=== PATIENT | female | born 1960 | race Hispanic/Latino ===

== ENCOUNTER 2021-11-11 23:44 | Inpatient (IN) | payer OTHER ==
[~2021-11-11] VITALS: Ht 162.6 cm; Wt 61.6 kg
[2021-11-12] MEDS ORDERED: 0.9%NACL 1000ML 1,000 ML IV ONE (00:30)
[2021-11-12] MEDS ORDERED: DILTIAZEM 25MG INJ IVP ONE ×2 (00:30→02:00)
[2021-11-12 00:31] LABS: APPEARANCE,URINE CLEAR (CLEAR); BILIRUBIN,URINE NEGATIVE (NEGATIVE); COLOR,URINE STRAW (YELLOW); GLUCOSE, URINE (UA) >=1000 mg/dL (NEGATIVE); KETONES,URINE NEGATIVE (NEGATIVE); LEUKOCYTE ESTERASE ,URINE NEGATIVE (NEGATIVE); NITRATE,URINE NEGATIVE (NEGATIVE); OCCULT BLOOD,URINE NEGATIVE (NEGATIVE); PROTEIN,URINE NEGATIVE (NEGATIVE); UROBILINOGEN,URINE 0.2 mg/dL (0.2-1.0)
[2021-11-12 00:35] LABS: BASOPHILS % (AUTO) 0.4 % (0.0-5.0); EOSINOPHILS % (AUTO) 1.1 % (0.0-8.0); HEMATOCRIT 46.3 % (36-48); LYMPHOCYTES % (AUTO) 59.8 % (21.0-51.0); MEAN CORPUSCULAR HEMOGLOBIN 30.7 pg (27.0-33.0); MEAN CORPUSCULAR VOLUME 87.7 fL (79-99); MONOCYTES % (AUTO) 6.6 % (3.0-13.0); NEUTROPHILS % (AUTO) 31.9 % (40.0-77.0); PLATELET COUNT (AUTO) 239 K/uL (130-400); RED BLOOD CELL COUNT(AUTO) 5.28 MIL/uL (4.00-5.50); RED CELL DISTRIBUTION WIDTH 12.8 % (11.0-15.5); WHITE BLOOD COUNT (AUTO) 10.1 K/uL (4.8-10.8)
[2021-11-12 00:37] LABS: BACTERIA,URINE Rare /HPF (None Seen); RBC,URINE None Seen /HPF (0-1); WBC,URINE None Seen /HPF (0-1)
[2021-11-12 00:43] LABS: INR 1.02 (0.85-1.15); PROTHROMBIN TIME 11.1 SEC (9.6-11.6)
[2021-11-12 00:51] LABS: CREATININE 0.8 mg/dL (0.5-1.5); POTASSIUM 3.8 mmol/L (3.5-5.1)
[2021-11-12 01:03] LABS: ALBUMIN 4.7 g/dL (3.5-5.0); BILIRUBIN,TOTAL 0.2 mg/dL (0.2-1.0); MAGNESIUM 1.9 mg/dL (1.80-2.40); PHOSPHORUS 3.4 mg/dL (2.5-4.9); THYROID STIMULATING HORMONE 4.84 uIU/mL (0.36-3.74); TOTAL PROTEIN, SERUM 8.9 g/dL (6.0-8.3)
[2021-11-12] MEDS ORDERED: DILTIAZEM 125 MG/25 ML INJ 125 MG in 0.9%NACL 100ML 100 ML IV SCH ×4 (02:30)
[2021-11-12] MEDS ORDERED: ONDANSETRON 4MG INJ IV PRN (03:30)
[2021-11-12] MEDS ORDERED: ACETAMINOPHEN 325 MG TAB PO PRN (03:30)
[2021-11-12] MEDS ORDERED: HYDROCODONE/ACETAMINOPHEN 5/325 MG TAB PO PRN ×2 (03:30)
[2021-11-12 06:11] LABS: HEMOGLOBIN A1C 10.6 % (4.0-6.0)
[2021-11-12 06:38] VITALS: BP 134/91
[2021-11-12] MEDS ORDERED: METF-445 PO (06:55)
[2021-11-12 07:08] VITALS: BP 120/60
[2021-11-12] MEDS: INSULIN HUMULIN R 100 UNIT/ML 3ML SQ SCH ×3 (08:58→16:30)
[2021-11-12] MEDS ORDERED: ENOXAPARIN SODIUM 40 MG/0.4 ML SYRINGE SQ SCH (09:00)
[2021-11-12] MEDS ORDERED: DILTIAZEM 180MG SR CAP PO SCH (09:00)
[2021-11-12] MEDS ORDERED: FAMOTIDINE 20MG TAB PO SCH (09:00)
[2021-11-12 12:00] VITALS: BP 118/66
[2021-11-12] MEDS ORDERED: DILT180C63 PO (15:09)
[2021-11-12 16:00] VITALS: BP_SYST 107; BP_SYST 116; BP_DIAS 54; BP_DIAS 59
== END 2021-11-12 17:15 | disposition home or self-care (01) | DRG 310 ==
LOC: EDH 23:44 → EDHIP 11-12 03:15 → 2DH 11-12 05:08
PROVIDERS: ADMIT Internal Medicine; ATTEND Internal Medicine
DX: I48.0 Paroxysmal atrial fibrillation (principal); E11.65 Type 2 diabetes mellitus with hyperglycemia; Z79.899 Other long term (current) drug therapy; Z79.84 Long term (current) use of oral hypoglycemic drugs
CPT/HCPCS: 36415; 80053; 81001; 82948; 83036; 83735; 83880; 84100; 84439; 84443; 84484; 85025; 85610; 93005; 99291; G0378; J1650; J1815

== ENCOUNTER 2022-03-03 22:24 | Inpatient (IN) | payer OTHER ==
[~2022-03-03] VITALS: Ht 162.6 cm; Wt 62.5 kg
[~2022-03-03 22:24] MED LIST: DILT180C63 PO; METF-445 PO
[2022-03-03] MEDS: DILTIAZEM 25MG INJ IVP ONE ×2 (22:43→22:50)
[2022-03-03 22:48] LABS: BASOPHILS % (AUTO) 0.5 % (0.0-5.0); EOSINOPHILS % (AUTO) 0.9 % (0.0-8.0); HEMATOCRIT 43.9 % (36-48); LYMPHOCYTES % (AUTO) 51.6 % (21.0-51.0); MEAN CORPUSCULAR HGB CONC 34.6 g/dL (32.0-36.0); MEAN CORPUSCULAR VOLUME 86.8 fL (79-99); MONOCYTES % (AUTO) 5.9 % (3.0-13.0); NEUTROPHILS % (AUTO) 40.9 % (40.0-77.0); PLATELET COUNT (AUTO) 268 K/uL (130-400); RED BLOOD CELL COUNT(AUTO) 5.06 MIL/uL (4.00-5.50); RED CELL DISTRIBUTION WIDTH 13.2 % (11.0-15.5); WHITE BLOOD COUNT (AUTO) 12.3 K/uL (4.8-10.8)
[2022-03-03 22:58] LABS: CREATININE 0.8 mg/dL (0.5-1.5); POTASSIUM 3.6 mmol/L (3.5-5.1)
[2022-03-03] MEDS ORDERED: DILTIAZEM 25MG INJ IVP ONE (23:00)
[2022-03-03] MEDS ORDERED: 0.9%NACL 1000ML 1,000 ML IV ONE (23:00)
[2022-03-03 23:03] LABS: ALBUMIN 4.8 g/dL (3.5-5.0); TOTAL PROTEIN, SERUM 8.6 g/dL (6.0-8.3)
[2022-03-03] MEDS: DILTIAZEM 125 MG/25 ML INJ 125 MG in 0.9%NACL 100ML 100 ML IV SCH (23:17)
[2022-03-03 23:23] LABS: APPEARANCE,URINE CLEAR (CLEAR); BILIRUBIN,URINE NEGATIVE (NEGATIVE); COLOR,URINE YELLOW (YELLOW); GLUCOSE, URINE (UA) 250 mg/dL (NEGATIVE); KETONES,URINE 15 mg/dL (NEGATIVE); LEUKOCYTE ESTERASE ,URINE NEGATIVE (NEGATIVE); NITRATE,URINE NEGATIVE (NEGATIVE); OCCULT BLOOD,URINE NEGATIVE (NEGATIVE); PROTEIN,URINE NEGATIVE (NEGATIVE); UROBILINOGEN,URINE 0.2 mg/dL (0.2-1.0)
[2022-03-03] MEDS ORDERED: ZOSYN 3.375GM +NS 50ML IV SCH (23:30)
[2022-03-03] MEDS ORDERED: ONDANSETRON 4MG INJ IVP PRN (23:30)
[2022-03-03] MEDS ORDERED: 0.9%NACL 1000ML 1,000 ML IV SCH (23:30)
[2022-03-03 23:31] LABS: BACTERIA,URINE None Seen /HPF (None Seen); RBC,URINE None Seen /HPF (0-1); WBC,URINE None Seen /HPF (0-1)
[2022-03-04] MEDS ORDERED: DIPHENHYDRAMINE HCL 25 MG CAPSULE PO PRN
[2022-03-04] MEDS ORDERED: MORPHINE 4 MG SYG IV PRN
[2022-03-04] MEDS ORDERED: NITROGLYCERIN 0.4 MG SL TAB SL PRN
[2022-03-04] MEDS ORDERED: MAG/ALUM/SIMETH 30 ML UDCUP PO PRN
[2022-03-04] MEDS ORDERED: ACETAMINOPHEN WITH CODEINE 1 TAB TAB PO PRN
[2022-03-04] MEDS ORDERED: ONDANSETRON 4MG INJ IV PRN
[2022-03-04] MEDS ORDERED: LACTULOSE 20 GM/30 ML UDCUP PO PRN
[2022-03-04] MEDS ORDERED: ACETAMINOPHEN 325 MG TAB PO PRN ×2
[2022-03-04] MEDS ORDERED: HYDRALAZINE 20MG/ML VIAL IV PRN
[2022-03-04 00:25] LABS: HEMOGLOBIN A1C 8.1 % (4.0-6.0)
[2022-03-04 00:31] LABS: MAGNESIUM 1.5 mg/dL (1.80-2.40); THYROID STIMULATING HORMONE 5.24 uIU/mL (0.36-3.74)
[2022-03-04] MEDS: 0.9%NACL 1000ML 1,000 ML IV SCH ×2 (00:32→11:33)
[2022-03-04] MEDS ORDERED: METO-408 PO (01:50)
[2022-03-04] MEDS ORDERED: ATOR10TA69 PO (01:50)
[2022-03-04 02:05] VITALS: BP 140/77
[2022-03-04 04:00] VITALS: BP 111/67
[2022-03-04] MEDS: INSULIN HUMULIN R 100 UNIT/ML 3ML SQ SCH ×4 (06:50→21:32)
[2022-03-04 07:40] VITALS: BP 135/56
[2022-03-04 08:37] LABS: BASOPHILS % (AUTO) 0.3 % (0.0-5.0); EOSINOPHILS % (AUTO) 1.1 % (0.0-8.0); HEMATOCRIT 38.3 % (36-48); LYMPHOCYTES % (AUTO) 55.5 % (21.0-51.0); MEAN CORPUSCULAR HEMOGLOBIN 30.7 pg (27.0-33.0); MEAN CORPUSCULAR HGB CONC 33.9 g/dL (32.0-36.0); MEAN CORPUSCULAR VOLUME 90.3 fL (79-99); MONOCYTES % (AUTO) 6.7 % (3.0-13.0); NEUTROPHILS % (AUTO) 36.2 % (40.0-77.0); PLATELET COUNT (AUTO) 232 K/uL (130-400); RED BLOOD CELL COUNT(AUTO) 4.24 MIL/uL (4.00-5.50); RED CELL DISTRIBUTION WIDTH 13.4 % (11.0-15.5); WHITE BLOOD COUNT (AUTO) 12.3 K/uL (4.8-10.8)
[2022-03-04] MEDS: FAMOTIDINE 20MG TAB PO SCH ×2 (09:00→21:08)
[2022-03-04] MEDS: ASPIRIN 81 MG EC TAB PO SCH (09:00)
[2022-03-04] MEDS: ENOXAPARIN SODIUM 40 MG/0.4 ML SYRINGE SQ SCH (09:01)
[2022-03-04] MEDS: MAGNESIUM 2GM PREMIX 50ML 50 ML IV SCH (09:02)
[2022-03-04 09:33] LABS: ALANINE AMINOTRANSFERASE 50 U/L (12-78); ALBUMIN 5.1 g/dL (3.5-5.0); ASPARTATE AMINOTRANSFERASE 33 U/L (10-37); CARBON DIOXIDE 16 mmol/L (21-32); CHLORIDE 97 mmol/L (101-111); CREATININE 0.8 mg/dL (0.5-1.5); GLOMERULAR FILTR. RATE CALC 78 mL/min (>60); GLUCOSE,RANDOM 158 mg/dL (70-105); POTASSIUM 3.4 mmol/L (3.5-5.1); SODIUM SERUM 139 mmol/L (136-145); TOTAL PROTEIN, SERUM 9.7 g/dL (6.0-8.3); UREA NITROGEN, BLOOD 24 mg/dL (7-18)
[2022-03-04 09:44] LABS: ERYTHROCYTE SEDIMENTATION RATE 9 MM/HR (0-30)
[2022-03-04 11:02] LABS: CRP QUANTITATIVE < 2.00 mg/L (0.00-9.0)
[2022-03-04 12:00] VITALS: BP 106/59
[2022-03-04] MEDS ORDERED: POTASSIUM CHLORIDE 10% ELIXIR 20 MEQ/15 ML UDCUP PO PRN (14:00)
[2022-03-04] MEDS ORDERED: POTASSIUM CHLORIDE 20MEQ/100ML 100 ML IV PRN (14:00)
[2022-03-04 14:38] LABS: CREATININE 0.6 mg/dL (0.5-1.5); POTASSIUM 3.6 mmol/L (3.5-5.1)
[2022-03-04 14:42] LABS: ALBUMIN 3.4 g/dL (3.5-5.0); TOTAL PROTEIN, SERUM 6.8 g/dL (6.0-8.3)
[2022-03-04 16:57] VITALS: BP 123/67
[2022-03-04 20:00] VITALS: BP 130/60
[2022-03-04] MEDS ORDERED: ATORVASTATIN 10 MG TABLET PO SCH (21:00)
[2022-03-04] MEDS: DILTIAZEM 125 MG/25 ML INJ 125 MG in 0.9%NACL 100ML 100 ML IV SCH (22:31)
[2022-03-05 00:33] VITALS: BP 127/65
[2022-03-05 04:00] VITALS: BP 138/58
[2022-03-05 05:58] LABS: BASOPHILS % (AUTO) 0.3 % (0.0-5.0); EOSINOPHILS % (AUTO) 1.6 % (0.0-8.0); HEMATOCRIT 33.5 % (36-48); LYMPHOCYTES % (AUTO) 52.4 % (21.0-51.0); MEAN CORPUSCULAR HEMOGLOBIN 30.1 pg (27.0-33.0); MEAN CORPUSCULAR HGB CONC 33.7 g/dL (32.0-36.0); MEAN CORPUSCULAR VOLUME 89.1 fL (79-99); MONOCYTES % (AUTO) 7.1 % (3.0-13.0); NEUTROPHILS % (AUTO) 38.5 % (40.0-77.0); PLATELET COUNT (AUTO) 178 K/uL (130-400); RED BLOOD CELL COUNT(AUTO) 3.76 MIL/uL (4.00-5.50); RED CELL DISTRIBUTION WIDTH 13.4 % (11.0-15.5); WHITE BLOOD COUNT (AUTO) 6.9 K/uL (4.8-10.8)
[2022-03-05 06:13] LABS: ALBUMIN 3.1 g/dL (3.5-5.0); CREATININE 0.6 mg/dL (0.5-1.5); MAGNESIUM 1.7 mg/dL (1.80-2.40); POTASSIUM 3.6 mmol/L (3.5-5.1); TOTAL PROTEIN, SERUM 6.1 g/dL (6.0-8.3)
[2022-03-05] MEDS: KCL 20 MEQ ERTAB PO PRN ×2 (06:37→09:28)
[2022-03-05] MEDS: INSULIN HUMULIN R 100 UNIT/ML 3ML SQ SCH ×2 (06:38→12:12)
[2022-03-05 08:00] VITALS: BP 130/63
[2022-03-05] MEDS: 0.9%NACL 1000ML 1,000 ML IV SCH (08:06)
[2022-03-05] MEDS: FAMOTIDINE 20MG TAB PO SCH (08:07)
[2022-03-05] MEDS: ASPIRIN 81 MG EC TAB PO SCH (08:07)
[2022-03-05] MEDS: ENOXAPARIN SODIUM 40 MG/0.4 ML SYRINGE SQ SCH (08:07)
[2022-03-05] MEDS: MAGNESIUM 2GM PREMIX 50ML 50 ML IV SCH (08:08)
[2022-03-05 12:00] VITALS: BP 135/65
[2022-03-05] MEDS ORDERED: FAMO20TA8 PO (15:37)
[2022-03-05] MEDS ORDERED: APIX5TAB PO (15:37)
[2022-03-05] MEDS ORDERED: DRON400T7 PO (15:37)
[2022-03-05] MEDS ORDERED: METOPROLOL TARTRATE 25 MG TAB PO SCH (21:00)
[2022-03-05] MEDS ORDERED: DRONEDARONE HYDROCHLORIDE 400 MG TABLET PO SCH (21:00)
[2022-03-05] MEDS ORDERED: APIXABAN 5 MG TABLET PO SCH (21:00)
== END 2022-03-05 16:15 | disposition home or self-care (01) | DRG 310 ==
LOC: EDH 22:24 → EDHIP 23:49 → 2AH 03-04 02:01
PROVIDERS: ADMIT Internal Medicine; ATTEND Internal Medicine
DX: I48.0 Paroxysmal atrial fibrillation (principal); E03.8 Other specified hypothyroidism; E11.65 Type 2 diabetes mellitus with hyperglycemia; E66.01 Morbid (severe) obesity due to excess calories; E83.42 Hypomagnesemia; J45.909 Unspecified asthma, uncomplicated; E86.0 Dehydration; I10 Essential (primary) hypertension; Z20.822 Contact with and (suspected) exposure to COVID-19; Z68.23 Body mass index [BMI] 23.0-23.9, adult; Z79.84 Long term (current) use of oral hypoglycemic drugs
CPT/HCPCS: 36415; 71045; 80053; 81001; 82010; 82948; 83036; 83605; 83735; 83880; 84145; 84439; 84443; 84484; 85025; 85651; 86140; 87635; 87804; 93005; 93306; 93356; 99291; G0378; J1650; J1815; J3475; J3490; J7030

== ENCOUNTER 2022-09-09 02:28 | Observation (INO) | payer OTHER ==
[~2022-09-09] VITALS: Ht 154.9 cm; Wt 61.6 kg
[~2022-09-09 02:28] MED LIST changes: +APIX5TAB PO; +ATOR10TA69 PO; -DILT180C63 PO; +DRON400T7 PO; +FAMO20TA8 PO
[2022-09-09 02:50] LABS: BASOPHILS % (AUTO) 0.3 % (0.0-5.0); EOSINOPHILS % (AUTO) 1.4 % (0.0-8.0); HEMATOCRIT 43.3 % (36-48); LYMPHOCYTES % (AUTO) 58.7 % (21.0-51.0); MEAN CORPUSCULAR HEMOGLOBIN 30.4 pg (27.0-33.0); MEAN CORPUSCULAR HGB CONC 33.9 g/dL (32.0-36.0); MEAN CORPUSCULAR VOLUME 89.6 fL (79-99); NEUTROPHILS % (AUTO) 32.4 % (40.0-77.0); PLATELET COUNT (AUTO) 232 K/uL (130-400); RED BLOOD CELL COUNT(AUTO) 4.83 MIL/uL (4.00-5.50); RED CELL DISTRIBUTION WIDTH 12.8 % (11.0-15.5); WHITE BLOOD COUNT (AUTO) 10.3 K/uL (4.8-10.8)
[2022-09-09 03:01] LABS: CREATININE 0.7 mg/dL (0.5-1.5); POTASSIUM 3.8 mmol/L (3.5-5.1)
[2022-09-09 03:05] LABS: ALBUMIN 4.2 g/dL (3.5-5.0); TOTAL PROTEIN, SERUM 8.3 g/dL (6.0-8.3)
[2022-09-09 03:46] LABS: INR 0.99 (0.85-1.15); PROTHROMBIN TIME 10.8 SEC (9.6-11.6)
[2022-09-09 03:47] LABS: PARTIAL THROMBOPLASTIN TIME 27.7 SEC (26.3-35.5)
[2022-09-09] MEDS ORDERED: 0.9% NACL 500ML IV.SOLN 500 ML IV SCH (04:00)
[2022-09-09] MEDS ORDERED: APIXABAN 5 MG TABLET PO ONE (05:00)
[2022-09-09] MEDS ORDERED: INSULIN HUMULIN R 100 UNIT/ML 3ML IV ONE (06:30)
[2022-09-09] MEDS ORDERED: METOPROLOL TARTRATE 1 MG/ML 5ML VIAL IV ONE (06:30)
[2022-09-09] MEDS ORDERED: SOTA80TA PO (08:25)
[2022-09-09] MEDS ORDERED: 0.9%NACL 1000ML 1,000 ML IV SCH (09:00)
[2022-09-09 09:10] LABS: HEMOGLOBIN A1C 9.7 % (4.0-6.0)
[2022-09-09 09:21] LABS: MAGNESIUM 1.6 mg/dL (1.80-2.40); THYROID STIMULATING HORMONE 5.77 uIU/mL (0.36-3.74)
[2022-09-09] MEDS ORDERED: DILTIAZEM 125 MG/25 ML INJ 125 MG in 0.9%NACL 100ML 100 ML IV SCH (09:30)
[2022-09-09] MEDS: PANTOPRAZOLE 40 MG TAB DR PO SCH (09:40)
[2022-09-09] MEDS: Vitamin B Complex/Vit C/Folic Acid PO SCH (09:40)
[2022-09-09] MEDS ORDERED: MAGNESIUM 2GM PREMIX 50ML 50 ML IV ONE (10:41)
[2022-09-09] MEDS: MAGNESIUM 2GM PREMIX 50ML 50 ML IV PRN (10:45)
[2022-09-09] MEDS: INSULIN HUMULIN R 100 UNIT/ML 3ML SQ SCH ×3 (12:00→21:51)
[2022-09-09 14:04] LABS: APPEARANCE,URINE CLEAR (CLEAR); BILIRUBIN,URINE NEGATIVE (NEGATIVE); COLOR,URINE LIGHT-YELLOW (YELLOW); GLUCOSE, URINE (UA) 300 mg/dL (NEGATIVE); KETONES,URINE 5 mg/dL (NEGATIVE); LEUKOCYTE ESTERASE ,URINE NEGATIVE Leu/uL (NEGATIVE); NITRATE,URINE NEGATIVE (NEGATIVE); OCCULT BLOOD,URINE NEGATIVE (NEGATIVE); PROTEIN,URINE NEGATIVE (NEGATIVE); UROBILINOGEN,URINE 0.2 mg/dL (0.2-1.0)
[2022-09-09 14:15] VITALS: BP 113/44
[2022-09-09 14:16] LABS: MUCUS,URINE RARE LPF (None Seen); RBC,URINE 0-1 /HPF (0-1); SQUAMOUS EPITHELIAL CELL,UR RARE /HPF (0-2); WBC,URINE 0-1 /HPF (0-1)
[2022-09-09 14:18] LABS: BACTERIA,URINE RARE /HPF (None Seen)
[2022-09-09 16:23] VITALS: BP 122/68
[2022-09-09] MEDS: APIXABAN 5 MG TABLET PO SCH (17:11)
[2022-09-09 19:15] VITALS: BP 142/73
[2022-09-09 19:21] VITALS: BP 110/58
[2022-09-10 00:21] VITALS: BP 117/69
[2022-09-10 03:21] VITALS: BP 140/56
[2022-09-10] MEDS: APIXABAN 5 MG TABLET PO SCH (05:33)
[2022-09-10 06:04] LABS: BASOPHILS % (AUTO) 0.3 % (0.0-5.0); EOSINOPHILS % (AUTO) 1.4 % (0.0-8.0); HEMATOCRIT 36.1 % (36-48); LYMPHOCYTES % (AUTO) 59.9 % (21.0-51.0); MEAN CORPUSCULAR HEMOGLOBIN 29.9 pg (27.0-33.0); MEAN CORPUSCULAR HGB CONC 33.5 g/dL (32.0-36.0); MEAN CORPUSCULAR VOLUME 89.1 fL (79-99); MONOCYTES % (AUTO) 6.4 % (3.0-13.0); NEUTROPHILS % (AUTO) 31.9 % (40.0-77.0); PLATELET COUNT (AUTO) 198 K/uL (130-400); RED BLOOD CELL COUNT(AUTO) 4.05 MIL/uL (4.00-5.50); RED CELL DISTRIBUTION WIDTH 12.9 % (11.0-15.5); WHITE BLOOD COUNT (AUTO) 7.1 K/uL (4.8-10.8)
[2022-09-10] MEDS: INSULIN HUMULIN R 100 UNIT/ML 3ML SQ SCH ×2 (06:16→13:40)
[2022-09-10 06:30] LABS: CREATININE 0.6 mg/dL (0.5-1.5); MAGNESIUM 1.7 mg/dL (1.80-2.40); POTASSIUM 3.8 mmol/L (3.5-5.1); TOTAL PROTEIN, SERUM 6.2 g/dL (6.0-8.3)
[2022-09-10 08:00] VITALS: BP 127/66
[2022-09-10] MEDS ORDERED: KCL 20 MEQ ERTAB PO ONE (08:00)
[2022-09-10] MEDS: Vitamin B Complex/Vit C/Folic Acid PO SCH (08:31)
[2022-09-10] MEDS: MAGNESIUM 2GM PREMIX 50ML 50 ML IV PRN (08:31)
[2022-09-10] MEDS: PANTOPRAZOLE 40 MG TAB DR PO SCH (08:31)
[2022-09-10 12:00] VITALS: BP 152/60
[2022-09-10] MEDS ORDERED: METF-445 PO ×2 (15:26→15:27)
[2022-09-10] MEDS ORDERED: APIX5TAB PO ×2 (15:26→15:27)
[2022-09-10] MEDS ORDERED: METOPROLOL TARTRATE 25 MG TAB PO SCH (21:00)
[2022-09-10] MEDS ORDERED: ATORVASTATIN 10 MG TABLET PO SCH (21:00)
[2022-09-10] MEDS ORDERED: SOTALOL HCL 80 MG TABLET PO SCH (21:00)
[2022-09-10] MEDS ORDERED: APIXABAN 5 MG TABLET PO SCH (21:00)
== END 2022-09-10 16:00 | disposition home or self-care (01) ==
LOC: EDH 02:28 → EDHIP 08:37 → INTOOBSV 08:37 → EDHIP 08:37 → UNDOADMOB 08:37 → 2AH 14:39 → EDHIP 14:39 → 2AH 14:39
PROVIDERS: ADMIT Internal Medicine; ATTEND Internal Medicine
DX: I48.20 Chronic atrial fibrillation, unspecified (principal); Z20.822 Contact with and (suspected) exposure to COVID-19; I48.0 Paroxysmal atrial fibrillation; I16.1 Hypertensive emergency; E83.42 Hypomagnesemia; E11.65 Type 2 diabetes mellitus with hyperglycemia; E78.5 Hyperlipidemia, unspecified; D68.59 Other primary thrombophilia; Z79.899 Other long term (current) drug therapy; Z79.01 Long term (current) use of anticoagulants; Z91.14 Patient's other noncompliance with medication regimen
CPT/HCPCS: 99291; 96365; 71045; 96367; 87635; 96366 ×2; 96375 ×2; 96361; 83036; 84443; 83735 ×2; 84484 ×2; 80053 ×2; 85025 ×2; 85610; 85730; 87804 ×2; 82948 ×5; 81001; 36415 ×2; 93005 ×4; 96372 ×2; 84439; 84481; J1815 ×3; J3475 ×2; J7040; J3490 ×2; G0378; J7030; 96374

== ENCOUNTER 2022-12-08 13:18 | Emergency (ER) | payer OTHER ==
[~2022-12-08] VITALS: Ht 152.4 cm; Wt 59.0 kg
[~2022-12-08 13:18] MED LIST changes: -DRON400T7 PO; -FAMO20TA8 PO; +SOTA80TA PO
[2022-12-08] MEDS ORDERED: DILTIAZEM 25MG INJ IVP ONE (13:30)
[2022-12-08 13:38] LABS: BASOPHILS % (AUTO) 0.7 % (0.0-5.0); EOSINOPHILS % (AUTO) 1.8 % (0.0-8.0); HEMATOCRIT 49.6 % (36-48); LYMPHOCYTES % (AUTO) 47.9 % (21.0-51.0); MEAN CORPUSCULAR HEMOGLOBIN 29.5 pg (27.0-33.0); MEAN CORPUSCULAR HGB CONC 33.1 g/dL (32.0-36.0); MEAN CORPUSCULAR VOLUME 89.2 fL (79-99); MONOCYTES % (AUTO) 8.7 % (3.0-13.0); NEUTROPHILS % (AUTO) 40.5 % (40.0-77.0); PLATELET COUNT (AUTO) 197 K/uL (130-400); RED BLOOD CELL COUNT(AUTO) 5.56 MIL/uL (4.00-5.50); RED CELL DISTRIBUTION WIDTH 13.1 % (11.0-15.5); WHITE BLOOD COUNT (AUTO) 7.3 K/uL (4.8-10.8)
[2022-12-08 13:52] LABS: CREATININE 0.7 mg/dL (0.5-1.5); MAGNESIUM 2.1 mg/dL (1.80-2.40); TOTAL PROTEIN, SERUM 8.6 g/dL (6.0-8.3)
[2022-12-08] MEDS ORDERED: DILTIAZEM 50MG VIAL IV ONE (14:06)
[2022-12-08 14:43] VITALS: BP 134/67
== END 2022-12-08 14:49 | disposition home or self-care (01) ==
LOC: EDH 13:18
DX: I48.91 Unspecified atrial fibrillation (principal); E11.9 Type 2 diabetes mellitus without complications; I21.9 Acute myocardial infarction, unspecified; Z79.84 Long term (current) use of oral hypoglycemic drugs; Z79.899 Other long term (current) drug therapy; Z98.890 Other specified postprocedural states
CPT/HCPCS: 99291; 83735; 84484; 80053; 85025; 36415; 71045; 93005 ×2; J3490

== ENCOUNTER 2023-05-29 23:57 | Emergency (ER) | payer OTHER ==
[~2023-05-29] VITALS: Ht 154.9 cm; Wt 59.4 kg
[2023-05-30] MEDS ORDERED: SOLU-MEDROL 125MG VIAL IM ONE (00:30)
[2023-05-30] MEDS ORDERED: CETI10CA5 PO (00:32)
[2023-05-30] MEDS ORDERED: FLUT16H NASAL (00:32)
[2023-05-30 01:11] VITALS: BP 152/79; PULSE 64; RESP 20; O2SAT 99
== END 2023-05-30 01:12 | disposition home or self-care (01) ==
LOC: EDH 23:57
DX: J30.9 Allergic rhinitis, unspecified (principal); E11.9 Type 2 diabetes mellitus without complications; Z79.01 Long term (current) use of anticoagulants; Z79.84 Long term (current) use of oral hypoglycemic drugs
CPT/HCPCS: 99283; 96372; J2930

== ENCOUNTER 2023-07-21 17:01 | Emergency (ER) | payer OTHER ==
[~2023-07-21] VITALS: Ht 157.5 cm; Wt 57.2 kg
[~2023-07-21 17:01] MED LIST changes: +CETI10CA5 PO; +FLUT16H NASAL
[2023-07-21 17:46] LABS: SARS-CoV-2, RNA, NAAT NEGATIVE SARS CoV-2 (NEGATIVE)
[2023-07-21 17:49] VITALS: TEMP 101.5
[2023-07-21 17:53] LABS: INFLUENZA TYPE A Negative For Type A (NEGATIVE); INFLUENZA TYPE B Negative For Type B (NEGATIVE)
[2023-07-21] MEDS ORDERED: ACETAMINOPHEN 500 MG TABLET PO ONE (18:00)
[2023-07-21 18:24] LABS: APPEARANCE,URINE CLEAR (CLEAR); BILIRUBIN,URINE NEGATIVE (NEGATIVE); COLOR,URINE YELLOW (YELLOW); GLUCOSE, URINE (UA) >=1000 mg/dL (NEGATIVE); KETONES,URINE >=80 mg/dL (NEGATIVE); LEUKOCYTE ESTERASE ,URINE 25 Leu/uL (NEGATIVE); NITRATE,URINE NEGATIVE (NEGATIVE); OCCULT BLOOD,URINE SMALL (NEGATIVE); PH,URINE 5.5 (5.0-8.0); PROTEIN,URINE 100 mg/dL (NEGATIVE); UROBILINOGEN,URINE 0.2 mg/dL (0.2-1.0)
[2023-07-21 18:26] LABS: ADD UA MICROSCOPIC YES
[2023-07-21 18:27] LABS: BACTERIA,URINE RARE /HPF (None Seen); MUCUS,URINE RARE LPF (None Seen); OTHER CASTS, URINE 1 /LPF (None Seen); SQUAMOUS EPITHELIAL CELL,UR RARE /HPF (0-2)
[2023-07-21 18:32] LABS: RAPID GROUP A STREP negative (NEGATIVE)
[2023-07-21 18:57] LABS: BASOPHILS # (AUTO) 0.03 K/uL (0.00-0.20); BASOPHILS % (AUTO) 0.3 % (0.0-5.0); HEMATOCRIT 41.8 % (36-48); IMMATURE GRANULOCYTE ABSOLUTE 0.05 K/uL (0-1); LYMPHOCYTES # (AUTO) 1.6 K/uL (1.0-4.8); LYMPHOCYTES % (AUTO) 14.2 % (21.0-51.0); MEAN CORPUSCULAR HEMOGLOBIN 29.6 pg (27.0-33.0); MEAN CORPUSCULAR HGB CONC 33.7 g/dL (32.0-36.0); MEAN CORPUSCULAR VOLUME 87.8 fL (79-99); MONOCYTES # (AUTO) 0.6 K/uL (0.1-1.0); MONOCYTES % (AUTO) 5.6 % (3.0-13.0); NEUTROPHILS # (AUTO) 8.8 K/uL (1.8-7.7); NEUTROPHILS % (AUTO) 79.5 % (40.0-77.0); PLATELET COUNT (AUTO) 151 K/uL (130-400); RED BLOOD CELL COUNT(AUTO) 4.76 MIL/uL (4.00-5.50); RED CELL DISTRIBUTION WIDTH 13.5 % (11.0-15.5); WHITE BLOOD COUNT (AUTO) 11.1 K/uL (4.8-10.8)
[2023-07-21 19:13] LABS: CREATININE 0.7 mg/dL (0.5-1.5); POTASSIUM 4.1 mmol/L (3.5-5.1)
[2023-07-21 19:17] LABS: ALBUMIN 3.2 g/dL (3.5-5.0); BILIRUBIN,TOTAL 0.7 mg/dL (0.2-1.0); TOTAL PROTEIN, SERUM 7.9 g/dL (6.0-8.3)
[2023-07-21] MEDS ORDERED: CEFTRIAXONE 1G VIAL IVPB ONE (19:30)
[2023-07-21] MEDS ORDERED: 0.9% NACL 500ML IV.SOLN 500 ML IV ONE (19:30)
[2023-07-21] MEDS ORDERED: CEPH500B PO (20:20)
[2023-07-21 21:14] VITALS: BP 117/62; PULSE 75; RESP 18; O2SAT 99
== END 2023-07-21 21:16 | disposition home or self-care (01) ==
LOC: EDH 17:01
DX: N39.0 Urinary tract infection, site not specified (principal); E11.65 Type 2 diabetes mellitus with hyperglycemia; Z20.822 Contact with and (suspected) exposure to COVID-19; Z79.84 Long term (current) use of oral hypoglycemic drugs; Z79.899 Other long term (current) drug therapy
CPT/HCPCS: 99284; 96365; 71045; 87635; 80053; 83690; 85025; 87077; 87088; 87186; 87880; 87804 ×2; 83605; 81001; 36415; C9803; J7040; J0696

== ENCOUNTER 2023-08-28 12:10 | Emergency (ER) | payer OTHER ==
[~2023-08-28] VITALS: Ht 162.6 cm; Wt 63.5 kg
[~2023-08-28 12:10] MED LIST changes: +CEPH500B PO
[2023-08-28 13:34] LABS: MEAN CORPUSCULAR HEMOGLOBIN 29.8 pg (27.0-33.0); MEAN CORPUSCULAR HGB CONC 34.3 g/dL (32.0-36.0); MEAN CORPUSCULAR VOLUME 86.6 fL (79-99); PLATELET COUNT (AUTO) 249 K/uL (130-400); RED BLOOD CELL COUNT(AUTO) 5.31 MIL/uL (4.00-5.50); RED CELL DISTRIBUTION WIDTH 13.7 % (11.0-15.5); WHITE BLOOD COUNT (AUTO) 10.9 K/uL (4.8-10.8)
[2023-08-28 13:50] LABS: CREATININE 0.9 mg/dL (0.5-1.5); POTASSIUM 3.7 mmol/L (3.5-5.1)
[2023-08-28] MEDS: METRONIDAZOLE 500MG/100ML BAG 100 ML IVPB SCH (13:56)
[2023-08-28] MEDS: LACTATED RINGERS 1000ML 1,641 ML IV ONE (13:56)
[2023-08-28 14:10] LABS: APPEARANCE,URINE CLOUDY (CLEAR); BILIRUBIN,URINE NEGATIVE (NEGATIVE); COLOR,URINE YELLOW (YELLOW); GLUCOSE, URINE (UA) >=1000 mg/dL (NEGATIVE); KETONES,URINE NEGATIVE (NEGATIVE); LEUKOCYTE ESTERASE ,URINE NEGATIVE Leu/uL (NEGATIVE); NITRATE,URINE NEGATIVE (NEGATIVE); PH,URINE 5.5 (5.0-8.0); PROTEIN,URINE 70 mg/dL (NEGATIVE); UROBILINOGEN,URINE 0.2 mg/dL (0.2-1.0)
[2023-08-28 14:27] LABS: ADD UA MICROSCOPIC YES
[2023-08-28 14:31] LABS: BACTERIA,URINE RARE /HPF (None Seen); MUCUS,URINE RARE LPF (None Seen); OTHER CASTS, URINE 12 /LPF (None Seen); RBC,URINE 0-1 /HPF (0-1); SQUAMOUS EPITHELIAL CELL,UR RARE /HPF (0-2); UNCLASSIFIED CRYSTAL 2 /HPF (None Seen)
[2023-08-28 14:42] LABS: BASOPHILS # (AUTO) 0.06 K/uL (0.00-0.20); BASOPHILS % (AUTO) 0.5 % (0.0-5.0); EOSINOPHILS # (AUTO) 0.14 K/uL (0.00-0.70); EOSINOPHILS % (AUTO) 1.2 % (0.0-8.0); IMMATURE GRANULOCYTE ABSOLUTE 0.04 K/uL (0-1); LYMPHOCYTES # (AUTO) 2.8 K/uL (1.0-4.8); MONOCYTES # (AUTO) 0.8 K/uL (0.1-1.0); MONOCYTES % (AUTO) 6.9 % (3.0-13.0); NEUTROPHILS # (AUTO) 7.4 K/uL (1.8-7.7)
[2023-08-28] MEDS ORDERED: METR-172 PO (15:48)
[2023-08-28 16:18] VITALS: BP 122/72; PULSE 64; RESP 16; O2SAT 98
== END 2023-08-28 16:29 | disposition home or self-care (01) ==
LOC: EDH 12:10
DX: A08.4 Viral intestinal infection, unspecified (principal); E11.9 Type 2 diabetes mellitus without complications; I48.91 Unspecified atrial fibrillation; Z79.01 Long term (current) use of anticoagulants; Z79.84 Long term (current) use of oral hypoglycemic drugs
CPT/HCPCS: 99284; 96365; 96366; 80048; 83690; 85025; 87088; 81001; 36415; J7120; J3490

== ENCOUNTER 2023-12-30 18:09 | Observation (INO) | payer OTHER ==
[~2023-12-30] VITALS: Ht 154.9 cm; Wt 63.5 kg
[~2023-12-30 18:09] MED LIST changes: +METR-172 PO
[2023-12-30 18:48] LABS: BASOPHILS # (AUTO) 0.06 K/uL (0.00-0.20); BASOPHILS % (AUTO) 0.5 % (0.0-5.0); EOSINOPHILS % (AUTO) 0.9 % (0.0-8.0); HEMATOCRIT 43.9 % (36-48); IMMATURE GRANULOCYTE ABSOLUTE 0.03 K/uL (0-1); MEAN CORPUSCULAR HEMOGLOBIN 29.8 pg (27.0-33.0); MEAN CORPUSCULAR HGB CONC 35.1 g/dL (32.0-36.0); MEAN CORPUSCULAR VOLUME 84.9 fL (79-99); MONOCYTES # (AUTO) 0.6 K/uL (0.1-1.0); MONOCYTES % (AUTO) 5.5 % (3.0-13.0); NEUTROPHILS # (AUTO) 5.3 K/uL (1.8-7.7); NEUTROPHILS % (AUTO) 47.8 % (40.0-77.0); PLATELET COUNT (AUTO) 230 K/uL (130-400); RED BLOOD CELL COUNT(AUTO) 5.17 MIL/uL (4.00-5.50); RED CELL DISTRIBUTION WIDTH 12.6 % (11.0-15.5)
[2023-12-30 19:08] LABS: INR <= 0.93 (0.85-1.15); PROTHROMBIN TIME 10.4 SEC (9.6-11.6)
[2023-12-30 19:10] LABS: PARTIAL THROMBOPLASTIN TIME 22.5 SEC (26.3-35.5)
[2023-12-30] MEDS ORDERED: METOPROLOL TARTRATE 1 MG/ML 5ML VIAL IV ONE (19:30)
[2023-12-30 19:35] LABS: B-TYPE NATRIURETIC PEPTIDE 6 pg/mL (0-100)
[2023-12-30 20:09] LABS: CREATININE 0.7 mg/dL (0.5-1.0); POTASSIUM 3.6 mmol/L (3.5-5.1)
[2023-12-30 20:14] LABS: ALBUMIN 3.6 g/dL (3.5-5.0); BILIRUBIN,TOTAL 0.3 mg/dL (0.2-1.0); TOTAL PROTEIN, SERUM 7.7 g/dL (6.0-8.3)
[2023-12-30] MEDS: METOPROLOL TARTRATE 1 MG/ML 5ML VIAL IV ONE (20:58)
[2023-12-30] MEDS ORDERED: POTASSIUM CHLORIDE 10% ELIXIR 20 MEQ/15 ML UDCUP PO PRN (21:30)
[2023-12-30] MEDS ORDERED: DEXTROSE 50%-WATER 50 ML DISP.SYRIN IV PRN (21:30)
[2023-12-30] MEDS ORDERED: POTASSIUM CHLORIDE 20MEQ/100ML 100 ML IV PRN (21:30)
[2023-12-30] MEDS ORDERED: GLUCAGON 1MG KIT 1 MG ML IM PRN (21:30)
[2023-12-30] MEDS ORDERED: ACETAMINOPHEN 325 MG TAB PO PRN ×2 (21:30)
[2023-12-30] MEDS ORDERED: ONDANSETRON 4MG INJ IV PRN (21:30)
[2023-12-30] MEDS: DILTIAZEM 25MG INJ IVP ONE (22:08)
[2023-12-30] MEDS: 0.9%NACL 1000ML 1,000 ML IV SCH (22:13)
[2023-12-31] VITALS (10 sets, daily range): BP systolic 92–130; BP diastolic 43–83; PULSE 61–115; RESP 16–20; O2SAT 99–100
[2023-12-31] MEDS ORDERED: 0.9% NACL 500ML IV.SOLN 500 ML IV SCH (01:00)
[2023-12-31] MEDS ORDERED: AMIODARONE 900MG VIAL 150 MG in DEXTROSE 5%-WATER 100 ML IV SCH (01:30)
[2023-12-31] MEDS ORDERED: AMIODARONE 900MG VIAL 360 MG in DEXTROSE 5%-WATER 200 ML IV SCH (01:30)
[2023-12-31] MEDS ORDERED: AMIODARONE 900MG VIAL 540 MG in DEXTROSE 5%-WATER 300 ML IV PRN (01:30)
[2023-12-31 05:18] LABS: BASOPHILS # (AUTO) 0.05 K/uL (0.00-0.20); BASOPHILS % (AUTO) 0.5 % (0.0-5.0); EOSINOPHILS # (AUTO) 0.14 K/uL (0.00-0.70); EOSINOPHILS % (AUTO) 1.5 % (0.0-8.0); HEMATOCRIT 41.8 % (36-48); IMMATURE GRANULOCYTE ABSOLUTE 0.02 K/uL (0-1); LYMPHOCYTES % (AUTO) 54.5 % (21.0-51.0); MEAN CORPUSCULAR HGB CONC 34.2 g/dL (32.0-36.0); MEAN CORPUSCULAR VOLUME 87.8 fL (79-99); MONOCYTES # (AUTO) 0.6 K/uL (0.1-1.0); MONOCYTES % (AUTO) 6.3 % (3.0-13.0); NEUTROPHILS # (AUTO) 3.4 K/uL (1.8-7.7); PLATELET COUNT (AUTO) 190 K/uL (130-400); RED BLOOD CELL COUNT(AUTO) 4.76 MIL/uL (4.00-5.50); RED CELL DISTRIBUTION WIDTH 12.6 % (11.0-15.5); WHITE BLOOD COUNT (AUTO) 9.2 K/uL (4.8-10.8)
[2023-12-31 05:50] LABS: ALBUMIN 3.2 g/dL (3.5-5.0); BILIRUBIN,TOTAL 0.5 mg/dL (0.2-1.0); CREATININE 0.7 mg/dL (0.5-1.0); MAGNESIUM 1.7 mg/dL (1.80-2.40); POTASSIUM 3.5 mmol/L (3.5-5.1); THYROID STIMULATING HORMONE 4.28 uIU/mL (0.36-3.74); TOTAL PROTEIN, SERUM 7.1 g/dL (6.0-8.3)
[2023-12-31 06:12] LABS: HEMOGLOBIN A1C 12.5 % (4.0-6.0)
[2023-12-31] MEDS: MAGNESIUM 2GM PREMIX 50ML 50 ML IV PRN (06:16)
[2023-12-31] MEDS: KCL 20 MEQ ERTAB PO PRN (06:16)
[2023-12-31] MEDS: INSULIN HUMULIN R 100 UNIT/ML 3ML SQ SCH (06:17)
[2023-12-31] MEDS: ENOXAPARIN SODIUM 40 MG/0.4 ML SYRINGE SQ SCH (07:46)
[2023-12-31] MEDS: FAMOTIDINE 20MG TAB PO SCH (07:46)
[2023-12-31] MEDS: METOPROLOL TARTRATE 25 MG TAB PO ONE (11:47)
[2023-12-31 13:24] LABS: APPEARANCE,URINE CLEAR (CLEAR); BILIRUBIN,URINE NEGATIVE (NEGATIVE); COLOR,URINE LIGHT-YELLOW (YELLOW); GLUCOSE, URINE (UA) >=1000 mg/dL (NEGATIVE); KETONES,URINE 10 mg/dL (NEGATIVE); LEUKOCYTE ESTERASE ,URINE NEGATIVE Leu/uL (NEGATIVE); NITRATE,URINE NEGATIVE (NEGATIVE); OCCULT BLOOD,URINE SMALL (NEGATIVE); PROTEIN,URINE NEGATIVE (NEGATIVE); UROBILINOGEN,URINE 0.2 mg/dL (0.2-1.0)
[2023-12-31 13:26] LABS: ADD UA MICROSCOPIC YES
[2023-12-31 13:35] LABS: SQUAMOUS EPITHELIAL CELL,UR RARE /HPF (0-2); WBC,URINE 0-1 /HPF (0-1)
[2023-12-31] MEDS: 0.9%NACL 1000ML 1,000 ML IV SCH (14:50)
[2023-12-31] MEDS: WARFARIN SODIUM 5 MG TAB PO SCH (15:58)
[2023-12-31] MEDS: METOPROLOL TARTRATE 25 MG TAB PO SCH (20:13)
[2023-12-31] MEDS: ENOXAPARIN SODIUM 60 MG/0.6 ML SQ ONE (20:14)
[2023-12-31] MEDS: INSULIN GLARGINE 100 UNITS/ML 10 ML VIAL SQ SCH (20:15)
[2023-12-31] MEDS ORDERED: METOPROLOL TARTRATE 25 MG TAB PO SCH (21:00)
[2024-01-01 03:55] LABS: BASOPHILS # (AUTO) 0.02 K/uL (0.00-0.20); BASOPHILS % (AUTO) 0.3 % (0.0-5.0); EOSINOPHILS % (AUTO) 2.5 % (0.0-8.0); HEMATOCRIT 37.7 % (36-48); IMMATURE GRANULOCYTE ABSOLUTE 0.02 K/uL (0-1); LYMPHOCYTES % (AUTO) 63.2 % (21.0-51.0); MEAN CORPUSCULAR HGB CONC 32.9 g/dL (32.0-36.0); MEAN CORPUSCULAR VOLUME 91.1 fL (79-99); MONOCYTES # (AUTO) 0.5 K/uL (0.1-1.0); MONOCYTES % (AUTO) 5.7 % (3.0-13.0); NEUTROPHILS # (AUTO) 2.2 K/uL (1.8-7.7); PLATELET COUNT (AUTO) 166 K/uL (130-400); RED BLOOD CELL COUNT(AUTO) 4.14 MIL/uL (4.00-5.50); RED CELL DISTRIBUTION WIDTH 12.9 % (11.0-15.5); WHITE BLOOD COUNT (AUTO) 7.9 K/uL (4.8-10.8)
[2024-01-01 04:04] LABS: INR 0.95 (0.85-1.15); PROTHROMBIN TIME 11.2 SEC (9.6-11.6)
[2024-01-01 04:08] VITALS: BP 167/84; PULSE 100; RESP 18
[2024-01-01 04:15] VITALS: BP 103/56; PULSE 54; RESP 18
[2024-01-01 04:22] LABS: CREATININE 0.6 mg/dL (0.5-1.0); PHOSPHORUS 3.2 mg/dL (2.5-4.9); POTASSIUM 3.6 mmol/L (3.5-5.1)
[2024-01-01 07:48] VITALS: BP 103/65; PULSE 76; RESP 20
[2024-01-01 08:49] VITALS: BP 150/81; PULSE 67; RESP 20
[2024-01-01] MEDS: SOTALOL HCL 80 MG TABLET PO SCH (08:52)
[2024-01-01 08:56] VITALS: O2SAT 98
[2024-01-01] MEDS ORDERED: WARF-57 PO (09:08)
[2024-01-01] MEDS ORDERED: SOTA80TA PO (09:08)
[2024-01-01] MEDS ORDERED: ATOR40TA69 PO (09:08)
[2024-01-01] MEDS ORDERED: METF-891 PO (09:08)
== END 2024-01-01 11:30 | disposition home or self-care (01) ==
LOC: EDH 18:09 → EDHIP 21:14 → 2AH 23:58
PROVIDERS: ADMIT Internal Medicine; ATTEND Internal Medicine
DX: I48.0 Paroxysmal atrial fibrillation (principal); E86.0 Dehydration; E11.65 Type 2 diabetes mellitus with hyperglycemia; I11.9 Hypertensive heart disease without heart failure; E78.5 Hyperlipidemia, unspecified; Z91.199 Patient's noncompliance with other medical treatment and regimen due to unspecified reason; Z91.120 Patient's intentional underdosing of medication regimen due to financial hardship; Z88.1 Allergy status to other antibiotic agents; Z79.01 Long term (current) use of anticoagulants; Z79.84 Long term (current) use of oral hypoglycemic drugs; Z79.899 Other long term (current) drug therapy
CPT/HCPCS: 96361 ×3; 96375; 84484 ×2; 80053 ×2; 83880; 85025 ×3; 85610 ×2; 85730; 36415 ×3; 71045; 99291; 93005 ×2; 96372; 96365; 96366; 83036; 84443; 83735 ×2; 80061; 82948 ×4; 81001; 93306; 84100; 80048; G0378 ×37; J3490 ×2; J3475; J7060; J1650 ×2; J0282; J1815 ×4

== ENCOUNTER 2024-03-20 23:13 | Emergency (ER) | payer OTHER ==
[~2024-03-20] VITALS: Ht 154.9 cm; Wt 62.6 kg
[~2024-03-20 23:13] MED LIST changes: -APIX5TAB PO; -ATOR10TA69 PO; +ATOR40TA69 PO; -CEPH500B PO; -CETI10CA5 PO; -FLUT16H NASAL; -METF-445 PO; +METF-891 PO; -METR-172 PO; +WARF-57 PO
[2024-03-20 23:43] LABS: BASOPHILS # (AUTO) 0.02 K/uL (0.00-0.20); BASOPHILS % (AUTO) 0.2 % (0.0-5.0); EOSINOPHILS % (AUTO) 1.2 % (0.0-8.0); IMMATURE GRANULOCYTE ABSOLUTE 0.03 K/uL (0-1); LYMPHOCYTES # (AUTO) 3.1 K/uL (1.0-4.8); LYMPHOCYTES % (AUTO) 38.2 % (21.0-51.0); MEAN CORPUSCULAR HEMOGLOBIN 29.8 pg (27.0-33.0); MEAN CORPUSCULAR HGB CONC 33.8 g/dL (32.0-36.0); MEAN CORPUSCULAR VOLUME 88.3 fL (79-99); MONOCYTES # (AUTO) 0.9 K/uL (0.1-1.0); MONOCYTES % (AUTO) 10.6 % (3.0-13.0); NEUTROPHILS % (AUTO) 49.4 % (40.0-77.0); PLATELET COUNT (AUTO) 154 K/uL (130-400); RED BLOOD CELL COUNT(AUTO) 4.19 MIL/uL (4.00-5.50); RED CELL DISTRIBUTION WIDTH 13.1 % (11.0-15.5)
[2024-03-20 23:49] LABS: RAPID GROUP A STREP negative (NEGATIVE)
[2024-03-20 23:53] LABS: INFLUENZA TYPE A Negative For Type A (NEGATIVE); INFLUENZA TYPE B Negative For Type B (NEGATIVE)
[2024-03-20 23:55] LABS: CREATININE 0.7 mg/dL (0.5-1.0); POTASSIUM 3.5 mmol/L (3.5-5.1)
[2024-03-20 23:56] LABS: SARS-CoV-2, RNA, NAAT POSITIVE SARS CoV-2 (NEGATIVE)
[2024-03-20 23:59] LABS: ALBUMIN 3.5 g/dL (3.5-5.0); BILIRUBIN,TOTAL 0.4 mg/dL (0.2-1.0); TOTAL PROTEIN, SERUM 7.5 g/dL (6.0-8.3)
[2024-03-21] MEDS: 0.9%NACL 1000ML 1,000 ML IV ONE (00:40)
[2024-03-21] MEDS: INSULIN humuLIN R 100 UNIT/ML 3ML SQ STA (00:41)
[2024-03-21 00:52] VITALS: TEMP 98.3
[2024-03-21 01:35] VITALS: BP 156/56; PULSE 78; RESP 18; O2SAT 97
[2024-04-03] MEDS ORDERED: APIX5TAB PO (07:57)
[2024-04-03] MEDS ORDERED: METF-445 PO (07:57)
[2024-04-04] MEDS ORDERED: SOTA80TA PO (11:11)
[2024-04-04] MEDS ORDERED: INSLAN SQ (13:51)
[2024-04-04] MEDS ORDERED: METF-445 PO (13:51)
[2024-04-04] MEDS ORDERED: GLIM4TAB36 PO (13:51)
[2024-04-05] MEDS ORDERED: CEPH500C2 PO (09:19)
== END 2024-03-21 01:35 | disposition home or self-care (01) ==
LOC: EDH 23:13
DX: U07.1 COVID-19 (principal); E11.65 Type 2 diabetes mellitus with hyperglycemia; Z79.01 Long term (current) use of anticoagulants; Z79.899 Other long term (current) drug therapy; Z79.84 Long term (current) use of oral hypoglycemic drugs; Z98.890 Other specified postprocedural states
CPT/HCPCS: 99284; 71045; 87635; 80053; 85025; 87880; 87804 ×2; 82948; 36415; 96360; 96372; J1815; J7030

== ENCOUNTER 2024-09-08 15:30 | Emergency (ER) | payer OTHER ==
[~2024-09-08] VITALS: Ht 157.5 cm; Wt 65.8 kg
[~2024-09-08 15:30] MED LIST changes: +AEC81 PO; +APIX5TAB PO; -ATOR40TA69 PO; +FAMO20TA8 PO; +GLIM4TAB36 PO; +INSLAN SQ; +METF-445 PO; -METF-891 PO; +PROP225C24 PO; -SOTA80TA PO; -WARF-57 PO
--- NOTE | 2024-09-08 15:46 | ERN ---
General Chief Complaint: Palpitations Stated Complaint: ARYTHMIA Time Seen by MD: 19:07 Source: patient History of Present Illness Initial Comments PATIENT IS A 64-YEAR-OLD FEMALE COMING IN TO BE EVALUATED FOR RACING HEART. PATIENT STATES HE DOES HAVE A HISTORY OF ATRIAL FIBRILLATION BUT WAS TOLD ONCE HER HEART RATE WENT OVER UP 100 TO COME TO THE ER. PATIENT STATES HER DOCTOR IS DR. MARTINEZ. Allergies: Coded Allergies: No Known Drug Allergies (Unverified Allergy, Unknown, 11/11/21) Home Meds Active Scripts Propafenone HCl (Propafenone HCl) 225 Mg Cap.er.12h, 225 MG PO BID, #60 CAPSULE. 3 Refills Prov:CHAN WICK MD 04/23/24 Famotidine (Famotidine) 20 Mg Tablet, 20 MG PO BID, #60 TAB Prov:TALI CORNELIUS APRN 04/23/24 Aspirin (ASPIRIN 81 MG ECTAB) 81 Mg Ectab, 81 MG PO DAILY, #60 TAB.EC Prov:TALI CORNELIUS APRN 04/23/24 Insulin Glargine,Hum.rec.anlog (Lantus) 100 Unit/Ml Inj, 25 UNITS SQ DAILY, #1 VIAL 0 Refills Prov:STEPHANIE CASTELLANOSSURI 04/04/24 Glimepiride (Glimepiride) 4 Mg Tablet, 4 MG PO DAILY, #30 TAB 0 Refills Prov:STEPHANIE CASTELLANOS 04/04/24 Metformin HCl (Metformin HCl) 850 Mg Tablet, 500 MG PO BID, #60 TAB 0 Refills Prov:STEPHANIE CASTELLANOSSURI 04/04/24 Reported Medications Apixaban (Eliquis) 5 Mg Tablet, 5 MG PO BID, TAB 04/03/24 Past Medical History Past Medical History: A-Fib, Hypertension Past Surgical History: None, Social History Social History: Negative, Lives with family Female( History) History: Not Applicable ROS Dictation CONSTITUTIONAL: NO CHILLS, NO FEVER, NO WEAKNESS, NO DIAPHORESIS, NO MALAISE. HEAD/FACE: NO SIGNS OF TRAUMA. EENT: NO EYE PAIN, NO BLURRED VISION, NO TEARING, NO DOUBLE VISION, NO EAR PAIN, NO EAR DISCHARGE, NO NOSE PAIN, NO NASAL CONGESTION, NO THROAT PAIN, NO THROAT SWELLING, NO MOUTH PAIN. RESPIRATORY: NO COUGH, NO ORTHOPNEA, NO SOB, NO STRIDOR, NO WHEEZING. CARDIOVASCULAR: NO CHEST PAIN, NO EDEMA, NO PALPITATIONS, NO SYNCOPE. GASTROINTESTINAL/ABDOMINAL: NO ABDOMINAL PAIN, NO CONSTIPATION, NO DIARRHEA, NO NAUSEA, NO VOMITING. GENITOURINARY: NO ABNORMAL DISCHARGE, NO DYSURIA, NO FREQUENT URINATION, NO HEMATURIA. NO COMPLAINTS OF PAIN IN THE GENITALS. MUSCULOSKELETAL: NO BACK PAIN, NO GOUT, NO JOINT PAIN, NO JOINT SWELLING, NO MUSCLE PAIN, NO MUSCLE STIFFNESS, NO NECK PAIN. INTEGUMENTARY: NO CHANGE IN COLOR, NO CHANGE IN HAIR/NAILS, NO DRYNESS, NO LESION, NO LUMPS, NO RASH. NEUROLOGICAL/PSYCH: NO ANXIETY, NOT DEPRESSED, NO EMOTIONAL PROBLEM, NO HEADACHE, NO NUMBNESS, NO PRE-EXISTING DEFICIT, NO HISTORY OF SEIZURES, NO TREMORS, NO WEAKNESS. HEMATOLOGIC/LYMPHATIC: NOT ANEMIC, NO HISTORY OF BLOOD CLOTS, NO APPARENT BLEEDING, NO BRUISING, GLANDS NOT SWOLLEN. ALL SYSTEMS NEGATIVE, EXCEPT NOTED. Physical Exam Physical Exam Dictation VITAL SIGNS: REVIEWED. GENERAL APPEARANCE: ALERT, ORIENTED X3, NO ACUTE DISTRESS, OBESE. HEAD AND FACE: NON-TRAUMATIC. EYES: PERRL, PINK CONJUNCTIVAS, EYELID NO TRAUMA, ANTERIOR CHAMBER CLEAR. EARS: PINNAS INTACT AND NO SIGNS OF TRAUMA OR ERYTHEMA. EAR CANALS CLEAR AND NO DISCHARGE. TMS NO ERYTHEMA. NOSE: NO DISCHARGE, NO BLEEDING. OROPHARYNX: MOUTH NORMAL, TEETH NO CARIES, TONGUE PINK. PHARYNX CLEAR, NO ERYTHEMA. TONSILS NO EXUDATES, NO ABSCESSES NOTED. MUCOUS MEMBRANE MOIST. NECK: SUPPLE, NON-TENDER, NO THYROMEGALY, NO MASSES, NO JVD, NO BRUITS. BREAST: DEFERRED. CHEST: NO TENDERNESS, NO CREPITUS, NO PARADOXICAL MOVEMENT, NO RETRACTIONS. LUNGS: CLEAR, WELL-VENTILATED, SYMMETRIC, NO RALES, NO WHEEZING, NO RHONCHI, NO STRIDOR, GOOD BREATH SOUNDS BILATERALLY. HEART: REGULAR RATE, REGULAR RHYTHM, NO MURMUR, NO GALLOPS. VASCULAR: NO PERIPHERAL EDEMA. ABDOMEN: SOFT, POSITIVE BOWEL SOUNDS, NONDISTENDED, NO GUARDING, NONTENDER, NO REBOUND, NO MASSES NO HEPATOMEGALY, NO SPLENOMEGALY, NO COCHRAN'S SIGN, NO HERNIAS. RECTAL: DEFERRED. GENITAL: DEFERRED. NEUROLOGICAL: NORMAL SPEECH, GROSS MOTOR FUNCTION INTACT, GROSS SENSORY FUNCTION INTACT. MUSCULOSKELETAL: NECK NONTENDER, FULL RANGE OF MOTION, BACK NONTENDER, FULL RANGE OF MOTION. EXTREMITIES: NONTENDER, FULL RANGE OF MOTION. SKIN: COLOR PINK, DRY, NO TURGOR, NO RASH, NO LACERATIONS, NO ABRASIONS, NO CONTUSIONS. LYMPHATICS: DEFERRED. Results Laboratory and Microbiology Lab and Micro Result Laboratory Tests Test 09/08/24 15:44 09/08/24 18:27 White Blood Count 9.7 K/uL (4.8-10.8) Red Blood Count 4.62 MIL/uL (4.00-5.50) Hemoglobin 13.5 g/dL (12.0-16.0) Hematocrit 40.7 % (36-48) Mean Corpuscular Volume 88.1 fL (79-99) Mean Corpuscular Hemoglobin 29.2 pg (27.0-33.0) Mean Corpuscular Hemoglobin Concent 33.2 g/dL (32.0-36.0) Red Cell Distribution Width 14.3 % (11.0-15.5) Platelet Count 178 K/uL (130-400) Mean Platelet Volume 10.7 fL (7.5-10.5) H Immature Granulocyte % (Auto) 0.2 % (0-1) Neutrophils (%) (Auto) 44.1 % (40.0-77.0) Lymphocytes (%) (Auto) 46.6 % (21.0-51.0) Monocytes (%) (Auto) 7.4 % (3.0-13.0) Eosinophils (%) (Auto) 1.3 % (0.0-8.0) Basophils (%) (Auto) 0.4 % (0.0-5.0) Neutrophils # (Auto) 4.3 K/uL (1.8-7.7) Lymphocytes # (Auto) 4.5 K/uL (1.0-4.8) Monocytes # (Auto) 0.7 K/uL (0.1-1.0) Eosinophils # (Auto) 0.13 K/uL (0.00-0.70) Basophils # (Auto) 0.04 K/uL (0.00-0.20) Absolute Immature Granulocyte (auto 0.02 K/uL (0-1) Nucleated Red Blood Cells 0.0 % (0.0-0.19) Prothrombin Time 12.1 SEC (9.6-11.6) H Prothromb Time International Ratio 1.09 (0.85-1.15) Activated Partial Thromboplast Time 29.6 SEC (26.3-35.5) Sodium Level 137 mmol/L (136-145) Potassium Level 4.1 mmol/L (3.5-5.1) Chloride Level 104 mmol/L (101-111) Carbon Dioxide Level 28 mmol/L (21-32) Blood Urea Nitrogen 22 mg/dL (7-18) H Creatinine 0.7 mg/dL (0.5-1.0) Glomerular Filtration Rate Calc 97 mL/min (>90) Random Glucose 339 mg/dL (70-105) H Total Calcium 8.6 mg/dL (8.5-10.1) Magnesium Level 1.40 mg/dL (1.80-2.40) L Total Creatine Kinase 145 U/L (21-232) # Troponin I High Sensitivity 7 ng/L (4-50) B-Type Natriuretic Peptide 116 pg/mL (0-100) H Urine Color LIGHT-YELLOW (YELLOW) Urine Appearance CLEAR (CLEAR) Urine pH 5.0 (5.0-8.0) Urine Specific [place] 1.031 (1.001-1.031) Urine Protein NEGATIVE mg/dL (NEGATIVE) Urine Glucose (UA) >=1000 mg/dL (NEGATIVE) H Urine Ketones 5 mg/dL (NEGATIVE) H Urine Occult Blood NEGATIVE (NEGATIVE) Urine Nitrate NEGATIVE (NEGATIVE) Urine Bilirubin NEGATIVE mg/dL (NEGATIVE) Urine Urobilinogen 0.2 mg/dL (0.2-1.0) Urine Leukocyte Esterase NEGATIVE Pallavi/uL Urine RBC 0-1 /HPF (0-1) Urine WBC 0-1 /HPF (0-1) Urine Squamous Epithelial Cells RARE /HPF (0-2) Urine Bacteria None /HPF (None Seen) Labs Reviewed?: Yes EKG/XRAY/US/CT/MRI EKG Comment 09/08/2024 TIME 3:36 P.M. VENTRICULAR RATE [address] WAVE ELEVATION OR DEPRESSION 1908 EKG eight#2 Who sinus rhythm 74 KS 161 QRS of 82 QTC of 435 left axis deviation QRS complexes are narrow with poor R-wave progression STT wave segments are otherwise unremarkable interpretation abnormal but converted to sinus rhythm X-RAY Comment Chest x-ray clear without acute pathology on my read. Jabari MARLEY MDM: DIFFERENTIAL DIAGNOSIS: RATIONALE: TESTS CONSIDERED AND ORDERED SECONDARY TO SHARED DECISION MAKING INCLUDE: PREVIOUS OUTSIDE RECORDS REVIEWED: OLD ER VISITS. RISK OF COMPLICATION AND/OR MORBIDITY OR MORTALITY OF PATIENT MANAGEMENT: NONE MEDICATIONS-PER MEDICATION RECONCILIATION NEED FOR HOSPITALIZATION: PATIENT DOES NOT MEET CRITERIA FOR HOSPITALIZATION. NEED FOR EMERGENCY MAJOR/MINOR SURGERY: NO THERE ARE NO SOCIAL CONCERNS WITH THIS PATIENT. PRESCRIPTION DRUG MANAGEMENT PRESCRIPTIONS WILL INCLUDE SYMPTOMATIC CARE PATIENT'S PRIOR EXTERNAL MEDICAL RECORDS FROM OTHER ER VISITS WERE REVIEWED BY ME INDICATED. PRIOR TESTING AND RESULTS FROM PREVIOUS VISITS WERE REVIEWED. PRIOR TESTS WERE TAKEN INTO ACCOUNT WITH MEDICAL DECISION MAKING AND RESOURCE UTILIZATION, INDEPENDENT HISTORIAN/HISTORIANS WERE USED TO OBTAIN COMPLETE MEDICAL HISTORY. I INDEPENDENTLY INTERPRETED THE TEST THAT WERE PERFORMED, RESULTS WERE REVIEWED BY ME AND CONSIDERED FINDINGS ON RADIOLOGY IF ORDERED. MEDICAL MANAGEMENT AND EXAMINATION INTERPRETATION DISCUSSIONS WERE HAD BY ME WITH OTHER QUALIFIED HEALTHCARE PROFESSIONALS INDICATED FOR THE PATIENT'S CARE. 1927: Patient signed out to me pending repeat EKG. She came in with AFib RVR. Patient is anticoagulated. At time of sign-out was noted that patient tach ycardia had resolved. Repeat EKG performed that shows sinus rhythm. Patient converted. On review of labs magnesium is a little low. This is supplemented. Patient is discharged with paroxysmal AFib that has converted in the ED. ED Course Orders Procedure Category Date Status Time Cbc With Differential LAB 09/08/24 Complete 15:34 Prothrombin Time With LAB 09/08/24 Complete INR 15:34 B-Type Natriuretic LAB 09/08/24 Complete Peptide 15:34 Chest 1vw RAD 09/08/24 Taken 15:34 12 Lead Ekg Tracing- EKG 09/08/24 Complete Technical 15:34 Magnesium LAB 09/08/24 Complete 15:34 Creatine Kinase, Total LAB 09/08/24 Complete 15:34 Troponin I High LAB 09/08/24 Complete Sensitivity 15:34 Urinalysis Profile LAB 09/08/24 Complete 15:34 Partial LAB 09/08/24 Complete Thromboplastin Time 15:34 Basic Metabolic Panel LAB 09/08/24 Complete 15:34 12 Lead Ekg Tracing- EKG 09/08/24 Logged Technical 19:05 Magnesium Oxide PHA 09/08/24 In Process (Mag-Ox) 19:30 Current Medications Medications (Trade) Dose Ordered Sig/Gisele Route PRN Reason Start Time Stop Time Status Last Admin Dose Admin Magnesium Oxide (Mag-Ox) 400 mg ONCE ONCE PO 09/08/24 19:30 09/08/24 19:31 09/08/24 19:21 Vital Signs Date Time Temp Pulse Resp B/P (MAP) Pulse Ox O2 Delivery O2 Flow Rate FiO2 09/08/24 18:38 98.4 77 16 138/46 96 Room Air* 0 21 09/08/24 15:32 98.4 125 18 151/126 67 Room Air 0 DX & DISP Disposition: Discharge Departure Impression: Primary Impression: Paroxysmal atrial fibrillation with rapid ventricular response Condition: Improved Referrals: RIZWAN MICHAEL (PCP) RASHID EDGAR MD Sep 08, 2024 15:45 SHERYL AGUIRRE MD Sep 08, 2024 19:29
[2024-09-08 16:02] LABS: BASOPHILS # (AUTO) 0.04 K/uL (0.00-0.20); BASOPHILS % (AUTO) 0.4 % (0.0-5.0); EOSINOPHILS # (AUTO) 0.13 K/uL (0.00-0.70); EOSINOPHILS % (AUTO) 1.3 % (0.0-8.0); HEMATOCRIT 40.7 % (36-48); IMMATURE GRANULOCYTE ABSOLUTE 0.02 K/uL (0-1); LYMPHOCYTES # (AUTO) 4.5 K/uL (1.0-4.8); LYMPHOCYTES % (AUTO) 46.6 % (21.0-51.0); MEAN CORPUSCULAR HEMOGLOBIN 29.2 pg (27.0-33.0); MEAN CORPUSCULAR HGB CONC 33.2 g/dL (32.0-36.0); MEAN CORPUSCULAR VOLUME 88.1 fL (79-99); MONOCYTES # (AUTO) 0.7 K/uL (0.1-1.0); MONOCYTES % (AUTO) 7.4 % (3.0-13.0); NEUTROPHILS # (AUTO) 4.3 K/uL (1.8-7.7); NEUTROPHILS % (AUTO) 44.1 % (40.0-77.0); PLATELET COUNT (AUTO) 178 K/uL (130-400); RED BLOOD CELL COUNT(AUTO) 4.62 MIL/uL (4.00-5.50); RED CELL DISTRIBUTION WIDTH 14.3 % (11.0-15.5); WHITE BLOOD COUNT (AUTO) 9.7 K/uL (4.8-10.8)
[2024-09-08 16:09] LABS: CREATININE 0.7 mg/dL (0.5-1.0); POTASSIUM 4.1 mmol/L (3.5-5.1)
[2024-09-08 16:14] LABS: MAGNESIUM 1.4 mg/dL (1.80-2.40)
[2024-09-08 16:19] LABS: INR 1.09 (0.85-1.15); PROTHROMBIN TIME 12.1 SEC (9.6-11.6)
[2024-09-08 16:20] LABS: PARTIAL THROMBOPLASTIN TIME 29.6 SEC (26.3-35.5)
[2024-09-08 16:27] LABS: B-TYPE NATRIURETIC PEPTIDE 116 pg/mL (0-100)
[2024-09-08 18:36] LABS: APPEARANCE,URINE CLEAR (CLEAR); BILIRUBIN,URINE NEGATIVE (NEGATIVE); COLOR,URINE LIGHT-YELLOW (YELLOW); GLUCOSE, URINE (UA) >=1000 mg/dL (NEGATIVE); KETONES,URINE 5 mg/dL (NEGATIVE); LEUKOCYTE ESTERASE ,URINE NEGATIVE Leu/uL (NEGATIVE); NITRATE,URINE NEGATIVE (NEGATIVE); OCCULT BLOOD,URINE NEGATIVE (NEGATIVE); PROTEIN,URINE NEGATIVE (NEGATIVE); UROBILINOGEN,URINE 0.2 mg/dL (0.2-1.0)
[2024-09-08 18:37] LABS: ADD UA MICROSCOPIC YES
[2024-09-08 18:38] VITALS: BP 138/46; PULSE 77; RESP 16; TEMP 98.5; O2SAT 96
[2024-09-08 18:41] LABS: RBC,URINE 0-1 /HPF (0-1); SQUAMOUS EPITHELIAL CELL,UR RARE /HPF (0-2); WBC,URINE 0-1 /HPF (0-1)
--- NOTE | 2024-09-08 19:17 | EKG ---
[facility] Test Date: 2024-09-08 Test Time: 19:08:34 Pat Name: JAKE NDIAYE Department: [facility] Room: Gender: F Practice Lead: [id number] : 1960 Requested By: RASHID EDGAR Order Number: [id number] Reading MD: Manny Smith Measurements Intervals [place] Rate: 74 P: 17 HI: 161 QRS: -26 QRSD: 82 T: 52 QT: 393 QTc: 435 Interpretive Statements Sinus rhythm Consider anterior infarct Compared to ECG 05/07/2024 20:12:12 Left-axis deviation no longer present Myocardial infarct finding still present Electronically Signed On 09-09-2024 06:58:23 HUC OB by Manny Smith Please click the below link to view image of tracing.
[2024-09-08] MEDS: MAGNESIUM OXIDE 400 MG TABLET PO ONE (19:21)
--- NOTE | 2024-09-09 04:48 | EKG ---
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
--- NOTE | 2024-09-09 14:06 | HMCIMG ---
CHEST 1VW REASON: SOB COMPARISON: 05/07/2024 FINDINGS: Single view of the chest was obtained. Lungs are clear. Heart size is normal. There is no pulmonary vascular congestion. Mediastinum and bony thorax appear unremarkable. IMPRESSION: 1. Normal single view chest x-ray.
== END 2024-09-08 19:33 | disposition home or self-care (01) ==
LOC: EDH 15:30
DX: I48.0 Paroxysmal atrial fibrillation (principal); I10 Essential (primary) hypertension; Z79.01 Long term (current) use of anticoagulants; Z79.82 Long term (current) use of aspirin; Z79.84 Long term (current) use of oral hypoglycemic drugs
CPT/HCPCS: 36415; 71045; 80048; 81001; 82550; 83735; 83880; 84484; 85025; 85610; 85730; 93005; 99285

== ENCOUNTER 2024-10-23 00:35 | Emergency (ER) | payer OTHER ==
[~2024-10-23] VITALS: Ht 162.6 cm; Wt 65.3 kg
[~2024-10-23 00:35] MED LIST changes: +ATOR40TA69 PO
[2024-10-23 01:05] VITALS: BP 118/74; PULSE 98; RESP 20; TEMP 98.6; O2SAT 10
--- NOTE | 2024-10-23 01:27 | ERN ---
General Chief Complaint: Palpitations Stated Complaint: C/O PALPITATIONS Time Seen by : 00:45 Source: patient History of Present Illness Initial Comments Patient is a 64-year-old female with history of atrial fibrillation comes to the emergency room with her heart racing. Stat EKG shows atrial fibrillation with a rate of about 112. While the patient was getting settled in and having labs drawn and me doing her exam she spontaneously converted to normal sinus rhythm. In fact she would like to go home. Allergies: Coded Allergies: No Known Drug Allergies (Unverified Allergy, Unknown, 11/11/21) Home Meds Active Scripts Propafenone HCl (Propafenone HCl) 225 Mg Cap.er.12h, 225 MG PO BID, #60 CAPSULE. 3 Refills Prov:CHAN WICK MD 04/23/24 Famotidine (Famotidine) 20 Mg Tablet, 20 MG PO BID, #60 TAB Prov:TALI CORNELIUS APRN 04/23/24 Aspirin (ASPIRIN 81 MG ECTAB) 81 Mg Ectab, 81 MG PO DAILY, #60 TAB.EC Prov:TALI CORNELIUS APRN 04/23/24 Insulin Glargine,Hum.rec.anlog (Lantus) 100 Unit/Ml Inj, 25 UNITS SQ DAILY, #1 VIAL 0 Refills Prov:STEPHANIE CASTELLANOSSURI 04/04/24 Glimepiride (Glimepiride) 4 Mg Tablet, 4 MG PO DAILY, #30 TAB 0 Refills Prov:STEPHANIE CASTELLANOSSURI 04/04/24 Metformin HCl (Metformin HCl) 850 Mg Tablet, 500 MG PO BID, #60 TAB 0 Refills Prov:STEPHANIE CASTELLANOSSURI 04/04/24 Reported Medications Atorvastatin Calcium (LIPITOR) 40 Mg Tablet, 1 TAB PO HS for 30 Days, #30 TAB 0 Refills 09/28/24 Apixaban (Eliquis) 5 Mg Tablet, 5 MG PO BID, TAB 04/03/24 Past Medical History Past Medical History: A-Fib, Diabetes-Type II Medical History Other: ELEVATED TROP Past Surgical History: Family History Family History: Negative Social History Social History: Negative, Lives with family Female( History) History: Not Applicable ROS Dictation Review of systems is negative except for the palpitations in her heart. She has no visual changes no headaches no decreased mental status no shortness of breath no chest pain just heart racing. No nausea no vomiting no gastrointestinal symptoms able to urinate just fine having normal bowel movements her only complaint is the heart palpitations, which have now resolved. Physical Exam General Appearance: (+) no apparent distress Orientation: (+) oriented x 3 Head/Face Trauma: No Eye: bilateral eye normal inspection, bilateral eye PERRL, bilateral eye EOMI Ear, Nose, Throat: (+) hearing grossly normal, (+) normal ENT inspection, (+) moist mucous membraine Neck: (+) normal inspection, (+) supple Respiratory: (+) chest non-tender, (+) lungs clear, (+) well ventilated Heart: (+) regular Vascular: (+) no edema, (+) normal peripheral pulse Gastrointestinal: (+) soft, (+) non-tender, (+) no organomegaly, (+) bowel sound present MDM Patient's labs have not returned but patient would like to go home and I see no reason to keep her here. I will follow up on the labs later tonight and if there is anything abnormal we will contact her. ED Course Vital Signs Date Time Temp Pulse Resp B/P (MAP) Pulse Ox O2 Delivery O2 Flow Rate FiO2 10/23/24 01:05 98.6 98 20 118/74 10 Room Air* 0 21 10/23/24 00:39 97.7 144 20 172/69 99 Room Air DX & DISP Disposition: Discharge Departure Impression: Primary Impression: Atrial fibrillation with RVR Condition: Stable Referrals: RIZWAN MICHAEL (PCP) BELKYS BATEMAN MD Oct 23, 2024 01:27
== END 2024-10-23 01:30 | disposition home or self-care (01) ==
LOC: EDH 00:35
DX: I48.91 Unspecified atrial fibrillation (principal); E11.9 Type 2 diabetes mellitus without complications; Z79.01 Long term (current) use of anticoagulants; Z79.4 Long term (current) use of insulin; Z79.82 Long term (current) use of aspirin; Z79.84 Long term (current) use of oral hypoglycemic drugs; Z98.890 Other specified postprocedural states
CPT/HCPCS: 99281

== ENCOUNTER 2024-11-14 23:46 | Emergency (ER) | payer OTHER ==
[~2024-11-14] VITALS: Ht 154.9 cm; Wt 63.5 kg
[~2024-11-14 23:46] MED LIST changes: -AEC81 PO; +AMIO200T44 PO; +AMIO200T68 PO; +ASPI-1443 PO; -FAMO20TA8 PO; +FAMO40TA7 PO; +INSU3INS3 SQ; -METF-445 PO; -PROP225C24 PO
[2024-11-15 00:12] LABS: BASOPHILS # (AUTO) 0.04 K/uL (0.00-0.20); BASOPHILS % (AUTO) 0.4 % (0.0-5.0); EOSINOPHILS # (AUTO) 0.12 K/uL (0.00-0.70); EOSINOPHILS % (AUTO) 1.3 % (0.0-8.0); HEMATOCRIT 39.4 % (36-48); IMMATURE GRANULOCYTE ABSOLUTE 0.03 K/uL (0-1); LYMPHOCYTES # (AUTO) 4.8 K/uL (1.0-4.8); MEAN CORPUSCULAR HGB CONC 33.5 g/dL (32.0-36.0); MEAN CORPUSCULAR VOLUME 89.5 fL (79-99); MONOCYTES # (AUTO) 0.7 K/uL (0.1-1.0); MONOCYTES % (AUTO) 7.3 % (3.0-13.0); NEUTROPHILS # (AUTO) 3.9 K/uL (1.8-7.7); NEUTROPHILS % (AUTO) 40.7 % (40.0-77.0); PLATELET COUNT (AUTO) 160 K/uL (130-400); RED CELL DISTRIBUTION WIDTH 13.1 % (11.0-15.5); WHITE BLOOD COUNT (AUTO) 9.6 K/uL (4.8-10.8)
--- NOTE | 2024-11-15 00:14 | ERN ---
ED Note History of Present Illness Stated Complaint: HIGH BLOOD PRESSURE Chief Complaint: Hypertension Time Seen by MD: 23:53 Time Seen by Midlevel: 23:53 Dictation: The patient is a 64-year-old female with a history of AFib on Eliquis, hypertension not on any medication, who presents to the emergency department with complaints of elevated blood pressure. Patient reports she was recently admitted for AFib with low ventricular response and was instructed by his pot lining supervisor to continue monitoring blood pressure and heart rate at home. Reports she checked her blood pressure today before bed around 11:00 p.m. and it was 198 systolic. Patient otherwise does not have any symptoms. Denies any shortness of breath, headache, dizziness, nausea vomiting, chest pain. Allergies: Coded Allergies: No Known Drug Allergies (Unverified Allergy, Unknown, 11/11/21) Home Meds Active Scripts Amiodarone HCl (Amiodarone HCl) 200 Mg Tablet, 200 MG PO DAILY, #30 TAB 3 Refills Prov:JHONNY MARTINEZ MD 11/13/24 Amiodarone HCl (Pacerone) 200 Mg Tablet, 200 MG PO DAILY, #30 TAB 3 Refills Prov:JHONNY MARTINEZ MD 11/13/24 Insulin Glargine,Hum.rec.anlog (Lantus) 100 Unit/Ml Inj, 25 UNITS SQ DAILY, #1 VIAL 0 Refills Prov:STEPHANIE CSATELLANOS AGPCNP 04/04/24 Reported Medications Famotidine (Famotidine) 40 Mg Tablet, 1 TAB PO DAILY for 30 Days, #30 TAB 0 Refills 11/10/24 Insulin Glargine,Hum.rec.anlog (Lantus Solostar) 100 Unit/Ml (3 Ml) Insuln.pen, 25 UNIT SQ DAILY, SYRINGE 11/10/24 Glimepiride (Glimepiride) 4 Mg Tablet, 1 TAB PO DAILY for 30 Days, #30 TAB 0 Refills 11/10/24 Atorvastatin Calcium (LIPITOR) 40 Mg Tablet, 1 TAB PO DAILY for 30 Days, #30 TAB 0 Refills 11/10/24 Aspirin (Aspirin EC) 81 Mg Tablet.dr, 1 TAB PO DAILY for 30 Days, #30 TAB 0 Refills 11/10/24 Apixaban (Eliquis) 5 Mg Tablet, 1 TAB PO BID for 30 Days, #60 TAB 0 Refills 11/10/24 Discontinued Reported Medications Sotalol HCl (Sotalol) 80 Mg Tablet, 1 TAB PO BID for 30 Days, #60 TAB 0 Refills 11/11/24 Ergocalciferol (Vitamin D2) (Vitamin D2) 1,250 Mcg (04472 Unit) Capsule, 1 CAP PO QWEEK for 28 Days, #4 CAP 0 Refills 11/10/24 Metformin HCl (Metformin HCl ER) 1,000 Mg Tab.er.24, 1 TAB PO DAILY for 30 Days, #30 TAB 0 Refills 11/10/24 Propafenone HCl (Propafenone HCl) 225 Mg Cap.er.12h, 1 CAP PO BID for 30 Days, #60 CAP 0 Refills 11/10/24 Atorvastatin Calcium (LIPITOR) 40 Mg Tablet, 1 TAB PO HS for 30 Days, #30 TAB 0 Refills 09/28/24 Apixaban (Eliquis) 5 Mg Tablet, 5 MG PO BID, TAB 04/03/24 Discontinued Scripts Propafenone HCl (Propafenone HCl) 225 Mg Cap.er.12h, 225 MG PO BID, #60 CAPSULE. 3 Refills Prov:CHAN WICK MD 04/23/24 Famotidine (Famotidine) 20 Mg Tablet, 20 MG PO BID, #60 TAB Prov:TALI CORNELIUS APRN 04/23/24 Aspirin (ASPIRIN 81 MG ECTAB) 81 Mg Ectab, 81 MG PO DAILY, #60 TAB.EC Prov:TALI CORNELIUS APRN 04/23/24 Glimepiride (Glimepiride) 4 Mg Tablet, 4 MG PO DAILY, #30 TAB 0 Refills Prov:STEPHANIE CASTELLANOS 04/04/24 Metformin HCl (Metformin HCl) 850 Mg Tablet, 500 MG PO BID, #60 TAB 0 Refills Prov:STEPHANIE CASTELLANOS 04/04/24 Past Medical History Past Medical History: A-Fib, Diabetes-Type II, Other Additional Past Medical Hx: HX OF ARRHYTHMIAS Surgical History: Family History: Negative Social History: Negative, Lives with family History: Not Applicable RN Note Reviewed/Agreed w/PFSH: Yes Review of System Dictation Constitutional: Negative for fever,chills, and weight loss Eyes: Negative for injury, pain,redness, and discharge ENT: Negative for injury,pain or swelling Cardiovascular: Negative for chest pain, palpitations, and edema Respiratory: Negative for shortness of breath, cough, and wheezing, Abdomen/GI: Negative for abdominal pain, nausea, vomiting, diarrhea, and constipation Back: Negative for injury and pain : Negative for injury, bleeding and discharge MS/Extremity: Negative for injury and deformity Skin: Negative for rash, and discoloration Neuro: Negative for headache, weakness, numbness, tingling, and seizure Psych: Negative for suicide ideation, homicidal ideation, and hallucinations Initial Vital Sign VS Vital Signs Date Time Temp Pulse Resp B/P (MAP) Pulse Ox O2 Delivery O2 Flow Rate FiO2 11/14/24 23:47 97.7 78 20 216/80 98 Room Air 11/15/24 00:20 0 21 Physical Exam Dictation Vital Signs reviewed General Appearance: Alert, oriented x 3, no acute distress, well developed, nourished. Head and Face: non-traumatic. Eyes: PERRL, pink conjunctivas, eyelid no trauma, anterior chamber with arcus senilis. Ears: Pinnas intact and no signs of trauma or erythema ear canals clear and no discharge TM no erythema Nose: No discharge, no bleeding. Oropharynx: Mouth normal, tongue pink. pharynx clear,no erythema, tonsils no exudates, no abscesses noted, mucous membrane moist Neck: Supple, non-tender, no thyromegaly, no masses, no JVD, no bruits Breast:Deferred Chest:No tenderness, no crepitus, no paradoxical movement, no retractions Lungs:Clear, well-ventilated, symmetric, no rales, no wheezing, no rhonchi, no stridor, good breath sounds bilaterally Heart: Regular rate, regular rhythm, no murmur, no gallops Vascular: no peripheral edema, Abdomen: Soft, positive bowel sounds, nondistended, no guarding, nontender, no rebound, no masses no hepatomegaly, no splenomegaly, no Balbuena's sign, no hernias. Rectal: Deferred Genital: Deferred Neurological: Normal speech, motor function intact, sensory function intact Musculoskeletal: Neck nontender, full range of motion, back nontender, full range of motion, Extremities: nontender, full range of motion Skin: Color pink, dry, no turgor, no rash, no lacerations, no abrasions, no contusions. Lymphatic: Deferred Results (Laboratory/Radiology) Laboratory/Radiology Laboratory Tests Test 11/15/24 00:03 11/15/24 01:17 White Blood Count 9.6 K/uL (4.8-10.8) Red Blood Count 4.40 MIL/uL (4.00-5.50) Hemoglobin 13.2 g/dL (12.0-16.0) Hematocrit 39.4 % (36-48) Mean Corpuscular Volume 89.5 fL (79-99) Mean Corpuscular Hemoglobin 30.0 pg (27.0-33.0) Mean Corpuscular Hemoglobin Concent 33.5 g/dL (32.0-36.0) Red Cell Distribution Width 13.1 % (11.0-15.5) Platelet Count 160 K/uL (130-400) Mean Platelet Volume 11.1 fL (7.5-10.5) H Immature Granulocyte % (Auto) 0.3 % (0-1) Neutrophils (%) (Auto) 40.7 % (40.0-77.0) Lymphocytes (%) (Auto) 50.0 % (21.0-51.0) Monocytes (%) (Auto) 7.3 % (3.0-13.0) Eosinophils (%) (Auto) 1.3 % (0.0-8.0) Basophils (%) (Auto) 0.4 % (0.0-5.0) Neutrophils # (Auto) 3.9 K/uL (1.8-7.7) Lymphocytes # (Auto) 4.8 K/uL (1.0-4.8) Monocytes # (Auto) 0.7 K/uL (0.1-1.0) Eosinophils # (Auto) 0.12 K/uL (0.00-0.70) Basophils # (Auto) 0.04 K/uL (0.00-0.20) Absolute Immature Granulocyte (auto 0.03 K/uL (0-1) Nucleated Red Blood Cells 0.0 % (0.0-0.19) Prothrombin Time 11.1 SEC (9.6-11.6) Prothromb Time International Ratio 1.05 (0.85-1.15) Activated Partial Thromboplast Time 26.7 SEC (26.3-35.5) Sodium Level 135 mmol/L (136-145) L Potassium Level 3.7 mmol/L (3.5-5.1) Chloride Level 99 mmol/L (101-111) L Carbon Dioxide Level 30 mmol/L (21-32) Blood Urea Nitrogen 14 mg/dL (7-18) Creatinine 0.7 mg/dL (0.5-1.0) Glomerular Filtration Rate Calc 97 mL/min (>90) Random Glucose 323 mg/dL (70-105) H Total Calcium 8.9 mg/dL (8.5-10.1) Total Creatine Kinase 121 U/L (21-232) Troponin I High Sensitivity 7 ng/L (4-50) B-Type Natriuretic Peptide 25 pg/mL (0-100) Urine Color COLORLESS (YELLOW) Urine Appearance CLEAR (CLEAR) Urine pH 5.5 (5.0-8.0) Urine Specific [place] 1.020 (1.001-1.031) Urine Protein NEGATIVE mg/dL (NEGATIVE) Urine Glucose (UA) >=1000 mg/dL (NEGATIVE) H Urine Ketones NEGATIVE mg/dL (NEGATIVE) Urine Occult Blood NEGATIVE (NEGATIVE) Urine Nitrate NEGATIVE (NEGATIVE) Urine Bilirubin NEGATIVE mg/dL (NEGATIVE) Urine Urobilinogen 0.2 mg/dL (0.2-1.0) Urine Leukocyte Esterase NEGATIVE Pallavi/uL Urine RBC 0-1 /HPF (0-1) Urine WBC 2-5 /HPF (0-1) H Urine Squamous Epithelial Cells RARE /HPF (0-2) Urine Bacteria None /HPF (None Seen) Labs Reviewed?: Yes EKG: (+) rhythm (Sinus rhythm) EKG Comment: Date:11/15/2024 Time:001 Ventricular rate:61 SD interval:147 QRS duration:82 QT/QTc:457 EKG interpretation: Sinus rhythm Reviewed by ED Attending no STEMI ED Course ED Course Orders Procedure Category Date Status Time Vital Signs Per CPOE 11/14/24 Transmitted Routine 23:56 B-Type Natriuretic LAB 11/14/24 Complete Peptide 23:56 Chest 1vw RAD 11/14/24 Taken 23:56 12 Lead Ekg Tracing- EKG 11/14/24 Logged Technical 23:56 Oxygen By Nc/Pulse Ox CPOE 11/14/24 Transmitted 23:56 Maintain Iv CPOE 11/14/24 Transmitted 23:56 Iv Insertion CPOE 11/14/24 Transmitted 23:56 Cardiac Monitoring CPOE 11/14/24 Transmitted 23:56 Pulse Oximetry With CPOE 11/14/24 Transmitted Vs And Prn 23:56 Cbc With Differential LAB 11/14/24 Complete 23:56 Activity: Br W/Brp CPOE 11/14/24 Transmitted With Assist 23:56 Creatine Kinase, Total LAB 11/14/24 Complete 23:56 Troponin I High LAB 11/14/24 Complete Sensitivity 23:56 Basic Metabolic Panel LAB 11/14/24 Complete 23:56 Pt And Ptt LAB 11/15/24 Complete 00:11 Hydralazine 20mg Inj PHA 11/15/24 Complete (Apresoline 20mg In 00:30 Urinalysis LAB 11/15/24 Complete W/Microscopic 01:17 Current Medications Medications (Trade) Dose Ordered Sig/Gisele Route PRN Reason Start Time Stop Time Status Last Admin Dose Admin Hydralazine HCl (APRESOLine 20MG INJ) 10 mg ONCE ONCE IV 11/15/24 00:30 11/15/24 00:31 DC 11/15/24 00:41 Vital Signs Date Time Temp Pulse Resp B/P (MAP) Pulse Ox O2 Delivery O2 Flow Rate FiO2 11/15/24 00:55 98.4 62 18 125/54 100 Room Air* 0 21 11/15/24 00:20 98.6 62 18 197/94 98 Room Air* 0 21 11/14/24 23:47 97.7 78 20 216/80 98 Room Air Medical Decision Making MDM The patient is a 64-year-old female with a history of AFib on Eliquis, hypertension not on any medication, who presents to the emergency department with complaints of elevated blood pressure. Patient reports she was recently admitted for AFib with low ventricular response and was instructed by his pot lining supervisor to continue monitoring blood pressure and heart rate at home. Reports she checked her blood pressure today before bed around 11:00 p.m. and it was 198 systolic. Patient otherwise does not have any symptoms. Denies any shortness of breath, headache, dizziness, nausea vomiting, chest pain. CBC showed no leukocytosis, no anemia, chemistry showed mild hyponatremia, hypochloremia, blood glucose of 323, no DKA, normal renal function, negative troponin, negative BNP, urinalysis unremarkable. Patient received IV hydralazine and improved in blood pressure. Patient continues in no acute distress, neurologically intact. Instructed to follow up with the his PCP and c ardiologist to evaluated the need of antihypertensive medication Differential diagnosis: Uncontrolled hypertension, hypertensive urgency, dehydration, ACS Need for hospitalization: Patient does not meet criteria for hospitalization. There are no social concerns with this patient. DX & DISP Disposition: Discharge Departure Impression: Primary Impression: Episode of hypertension Additional Impression: Uncontrolled diabetes mellitus with hyperglycemia Condition: Stable Additional Instructions: pleased follow up with the primary doctor in 1-2 days. avoid any meals high in sodium. take your medications as prescribed. Follow up with your pot lining supervisor to evaluate the need for antihypertensive medication FOLLOW-UP WITH PRIMARY CARE PROVIDER IN 1 TO 2 DAYS. TAKE MEDICATIONS DIRECTED HERE IN THE EMERGENCY ROOM. OKAY TO CONTINUE HOME MEDICATIONS UNLESS O THERWISE DISCUSSED DURING YOUR VISIT IN THE EMERGENCY ROOM TODAY. RETURN TO YOUR NEAREST EMERGENCY ROOM IF SYMPTOMS WORSEN OR IF THERE IS NO IMPROVEMENT. CALL 911 IF YOU NEED IMMEDIATE ASSISTANCE. TAKE TYLENOL OR MOTRIN [id number] NEEDED AND IF NO CONTRAINDICATIONS ARE PRESENT. INCREASE ORAL HYDRATION. A WOUND CULTURE OR URINE CULTURE WAS ORDERED HERE IN THE EMERGENCY ROOM DEPARTMENT PLEASE FOLLOW-UP WITH PRIMARY CARE PROVIDER AND ADVISE THEM TO GET REPEAT PORTS FROM OUR FACILITY. IF YOU HAD ANY GARETH WRAP/SPLINTS THAT WERE APPLIED HERE, PLEASE DO NOT REMOVE THEM UNTIL YOU SEE YOUR PRIMARY CARE OR SPECIALTY. Referrals: RIZWAN MICHAEL (PCP) Time of Disposition: 01:37 I have reviewed the case, and I agree with, Diagnosis and Plan BERRY POOL Nov 15, 2024 00:14
[2024-11-15 00:25] LABS: CREATININE 0.7 mg/dL (0.5-1.0); POTASSIUM 3.7 mmol/L (3.5-5.1)
[2024-11-15 00:29] LABS: INR 1.05 (0.85-1.15); PROTHROMBIN TIME 11.1 SEC (9.6-11.6)
[2024-11-15 00:31] LABS: PARTIAL THROMBOPLASTIN TIME 26.7 SEC (26.3-35.5)
[2024-11-15] MEDS: hydrALAZine 20MG/ML VIAL IV ONE (00:41)
[2024-11-15 00:54] LABS: B-TYPE NATRIURETIC PEPTIDE 25 pg/mL (0-100)
[2024-11-15 01:31] LABS: APPEARANCE,URINE CLEAR (CLEAR); BILIRUBIN,URINE NEGATIVE (NEGATIVE); COLOR,URINE COLORLESS (YELLOW); GLUCOSE, URINE (UA) >=1000 mg/dL (NEGATIVE); KETONES,URINE NEGATIVE (NEGATIVE); LEUKOCYTE ESTERASE ,URINE NEGATIVE Leu/uL (NEGATIVE); MUCUS,URINE RARE LPF (None Seen); NITRATE,URINE NEGATIVE (NEGATIVE); OCCULT BLOOD,URINE NEGATIVE (NEGATIVE); PH,URINE 5.5 (5.0-8.0); PROTEIN,URINE NEGATIVE (NEGATIVE); RBC,URINE 0-1 /HPF (0-1); SQUAMOUS EPITHELIAL CELL,UR RARE /HPF (0-2); UROBILINOGEN,URINE 0.2 mg/dL (0.2-1.0)
[2024-11-15 01:50] VITALS: BP 124/56; PULSE 65; RESP 15; TEMP 97.6; O2SAT 98
--- NOTE | 2024-11-15 08:31 | HMCIMG ---
PORTABLE CHEST RADIOGRAPH INDICATION: CHEST PAIN COMPARISON: 11/11/2024 FINDINGS: Heart size is normal. The pulmonary vascularity and susan appear normal. No abnormal pulmonary parenchymal opacity or consolidation identified. No significant pleural effusion noted. No pneumothorax detected. IMPRESSION: No radiographic evidence for any acute cardiopulmonary process.
--- NOTE | 2024-11-15 10:46 | EKG ---
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
== END 2024-11-15 01:51 | disposition home or self-care (01) ==
LOC: EDH 23:46
DX: I10 Essential (primary) hypertension (principal); E11.65 Type 2 diabetes mellitus with hyperglycemia; I48.91 Unspecified atrial fibrillation; Z79.01 Long term (current) use of anticoagulants; Z79.4 Long term (current) use of insulin; Z79.82 Long term (current) use of aspirin; Z79.84 Long term (current) use of oral hypoglycemic drugs; Z79.899 Other long term (current) drug therapy
CPT/HCPCS: 99285; 71045; 82550; 84484; 80048; 83880; 85025; 85610; 85730; 81001; 36415; 93005; 96374; J0360

== ENCOUNTER 2024-12-17 21:54 | Emergency (ER) | payer OTHER ==
[~2024-12-17] VITALS: Ht 162.6 cm; Wt 63.5 kg
[~2024-12-17 21:54] MED LIST changes: -AMIO200T44 PO; -AMIO200T68 PO; -ASPI-1443 PO; -INSLAN SQ; +PROP225C24 PO
[2024-12-17 22:10] LABS: BASOPHILS # (AUTO) 0.04 K/uL (0.00-0.20); BASOPHILS % (AUTO) 0.4 % (0.0-5.0); EOSINOPHILS # (AUTO) 0.17 K/uL (0.00-0.70); EOSINOPHILS % (AUTO) 1.6 % (0.0-8.0); IMMATURE GRANULOCYTE ABSOLUTE 0.02 K/uL (0-1); LYMPHOCYTES # (AUTO) 4.8 K/uL (1.0-4.8); LYMPHOCYTES % (AUTO) 43.8 % (21.0-51.0); MEAN CORPUSCULAR HEMOGLOBIN 29.7 pg (27.0-33.0); MEAN CORPUSCULAR VOLUME 87.6 fL (79-99); MONOCYTES # (AUTO) 0.9 K/uL (0.1-1.0); MONOCYTES % (AUTO) 8.2 % (3.0-13.0); NEUTROPHILS % (AUTO) 45.8 % (40.0-77.0); PLATELET COUNT (AUTO) 222 K/uL (130-400); RED BLOOD CELL COUNT(AUTO) 4.91 MIL/uL (4.00-5.50); RED CELL DISTRIBUTION WIDTH 12.9 % (11.0-15.5)
--- NOTE | 2024-12-17 22:14 | NUR ---
PT ARRIVED TO ED OV C/P PALPITATIONS. NO CHEST PAIN NO SOB. PT HAS HX OF AFIB. 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
[2024-12-17 22:18] LABS: CREATININE 0.9 mg/dL (0.5-1.0); POTASSIUM 3.9 mmol/L (3.5-5.1)
--- NOTE | 2024-12-17 22:33 | ERN ---
ED Note History of Present Illness Stated Complaint: ARRYTHMIA Chief Complaint: Palpitations Time Seen by MD: 22:02 Dictation: Patient is a 64-year-old female with a past medical history of diabetes mellitus type 2, atrial fibrillation on Eliquis and propafenone 225 mg b.i.d. as per prescription in the medical electronic record. Patient came to the ER because he started feeling palpitations at home, she checked her vital signs, stated that her heart rate was in the 150s and fluctuated to 110s, also her blood pressure was elevated. Patient stated that she takes her night home dose of propafenone and came to the ER. On arrival EKG shows sinus rhythm with a heart rate in the 81, no AFib. Blood pressure was elevated with systolic in the 170s. Patient denied chest pain. Allergies: Coded Allergies: No Known Drug Allergies (Unverified Allergy, Unknown, 11/11/21) Home Meds Active Scripts Propafenone HCl (Propafenone HCl) 225 Mg Cap.er.12h, 1 CAP PO BID for 30 Days, #60 CAP 1 Refill Prov:RONALD BADILLO 12/08/24 Reported Medications Famotidine (Famotidine) 40 Mg Tablet, 1 TAB PO DAILY for 30 Days, #30 TAB 0 Refills 11/10/24 Insulin Glargine,Hum.rec.anlog (Lantus Solostar) 100 Unit/Ml (3 Ml) Insuln.pen, 25 UNIT SQ DAILY, SYRINGE 11/10/24 Glimepiride (Glimepiride) 4 Mg Tablet, 1 TAB PO DAILY for 30 Days, #30 TAB 0 Refills 11/10/24 Atorvastatin Calcium (LIPITOR) 40 Mg Tablet, 1 TAB PO DAILY for 30 Days, #30 TAB 0 Refills 11/10/24 Apixaban (Eliquis) 5 Mg Tablet, 1 TAB PO BID for 30 Days, #60 TAB 0 Refills 11/10/24 Past Medical History Past Medical History: A-Fib, Diabetes-Type II, Other Additional Past Medical Hx: HX OF ARRHYTHMIAS Surgical History: Family History: Negative Social History: Negative, Lives with family History: Not Applicable Review of System Dictation NEGATIVE EXCEPT PER HPI Constitutional: Negative for fever,chills, and weight loss Eyes: Negative for injury, pain,redness, and discharge ENT: Negative for injury,pain or swelling Cardiovascular: denies chest pain. She does reports palpitation Respiratory: Negative for shortness of breath, cough, and wheezing, Abdomen/GI: Negative for abdominal pain, nausea, vomiting, diarrhea, and constipation Back: Negative for injury and pain : Negative for injury, bleeding and discharge MS/Extremity: Negative for injury and deformity Skin: Negative for rash, and discoloration Neuro: Negative for headache, weakness, numbness, tingling, and seizure Psych: Negative for suicide ideation, homicidal ideation, and hallucinations Initial Vital Sign VS Vital Signs Date Time Temp Pulse Resp B/P (MAP) Pulse Ox O2 Delivery O2 Flow Rate FiO2 12/17/24 22:21 84 18 140/51 99 Room Air* 0 21 Physical Exam Dictation General: awake, alert, NAD Head/Face: Normocephalic, atraumatic Eyes: PERRL, EOMI, vision at baseline ENT: oral cavity clear, TMs clear, no signs of infection Neck: Trachea midline, supple, no nuchal rigidity Cardiovascular: RRR, normal S1/S2, No MRGs, no JVD Respiratory: CTAB, no respiratory distress, No rales or wheezes Abdomen: Soft , no tender Skin: Warm, dry, normal turgor, no rash MS/Extremity: Pulses equal, no cyanosis, neurovascular intact, FROM Neuro: COAx4, GCS 15, strength 5/5, CN 2-12 intact, normal cerebellar exam, normal gait, Psych: Normal behavior, mood, and affect normal Results (Laboratory/Radiology) Laboratory/Radiology Laboratory Tests Test 12/17/24 22:01 12/17/24 22:12 White Blood Count 11.0 K/uL (4.8-10.8) H Red Blood Count 4.91 MIL/uL (4.00-5.50) Hemoglobin 14.6 g/dL (12.0-16.0) Hematocrit 43.0 % (36-48) Mean Corpuscular Volume 87.6 fL (79-99) Mean Corpuscular Hemoglobin 29.7 pg (27.0-33.0) Mean Corpuscular Hemoglobin Concent 34.0 g/dL (32.0-36.0) Red Cell Distribution Width 12.9 % (11.0-15.5) Platelet Count 222 K/uL (130-400) Mean Platelet Volume 11.1 fL (7.5-10.5) H Immature Granulocyte % (Auto) 0.2 % (0-1) Neutrophils (%) (Auto) 45.8 % (40.0-77.0) Lymphocytes (%) (Auto) 43.8 % (21.0-51.0) Monocytes (%) (Auto) 8.2 % (3.0-13.0) Eosinophils (%) (Auto) 1.6 % (0.0-8.0) Basophils (%) (Auto) 0.4 % (0.0-5.0) Neutrophils # (Auto) 5.0 K/uL (1.8-7.7) Lymphocytes # (Auto) 4.8 K/uL (1.0-4.8) Monocytes # (Auto) 0.9 K/uL (0.1-1.0) Eosinophils # (Auto) 0.17 K/uL (0.00-0.70) Basophils # (Auto) 0.04 K/uL (0.00-0.20) Absolute Immature Granulocyte (auto 0.02 K/uL (0-1) Nucleated Red Blood Cells 0.0 % (0.0-0.19) Sodium Level 134 mmol/L (136-145) L Potassium Level 3.9 mmol/L (3.5-5.1) Chloride Level 98 mmol/L (101-111) L Carbon Dioxide Level 26 mmol/L (21-32) Blood Urea Nitrogen 20 mg/dL (7-18) H Creatinine 0.9 mg/dL (0.5-1.0) Glomerular Filtration Rate Calc 71 mL/min (>90) Random Glucose 338 mg/dL (70-105) H Total Calcium 9.4 mg/dL (8.5-10.1) Total Creatine Kinase 110 U/L (21-232) Troponin I High Sensitivity 5 ng/L (4-50) B-Type Natriuretic Peptide 9 pg/mL (0-100) Urine Color COLORLESS (YELLOW) Urine Appearance CLEAR (CLEAR) Urine pH 7.5 (5.0-8.0) Urine Specific [place] 1.016 (1.001-1.031) Urine Protein NEGATIVE mg/dL (NEGATIVE) Urine Glucose (UA) >=1000 mg/dL (NEGATIVE) H Urine Ketones 10 mg/dL (NEGATIVE) H Urine Occult Blood NEGATIVE (NEGATIVE) Urine Nitrate NEGATIVE (NEGATIVE) Urine Bilirubin NEGATIVE mg/dL (NEGATIVE) Urine Urobilinogen 0.2 mg/dL (0.2-1.0) Urine Leukocyte Esterase NEGATIVE Pallavi/uL Urine RBC 2-5 /HPF (0-1) H Urine WBC 0-1 /HPF (0-1) Urine Bacteria None /HPF (None Seen) EKG Comment: Rate 81 sinus rhythm CA 150, QRS D 87, QT 356 No atrial fibrillation. ED Course ED Course Orders Procedure Category Date Status Time Vital Signs Per CPOE 12/17/24 Transmitted Routine 22:02 B-Type Natriuretic LAB 12/17/24 Complete Peptide 22:02 Chest 1vw RAD 12/17/24 Resulted 22:02 12 Lead Ekg Tracing- EKG 12/17/24 Logged Technical 22:02 Oxygen By Nc/Pulse Ox CPOE 12/17/24 Transmitted 22:02 Maintain Iv CPOE 12/17/24 Transmitted 22:02 Iv Insertion CPOE 12/17/24 Transmitted 22:02 Cardiac Monitoring CPOE 12/17/24 Transmitted 22:02 Pulse Oximetry With CPOE 12/17/24 Transmitted Vs And Prn 22:02 Cbc With Differential LAB 12/17/24 Complete 22:02 Activity: Br W/Brp CPOE 12/17/24 Transmitted With Assist 22:02 Creatine Kinase, Total LAB 12/17/24 Complete 22:02 Troponin I High LAB 12/17/24 Complete Sensitivity 22:02 Urinalysis Profile LAB 12/17/24 Complete 22:02 Basic Metabolic Panel LAB 12/17/24 Complete 22:02 Vital Signs Date Time Temp Pulse Resp B/P (MAP) Pulse Ox O2 Delivery O2 Flow Rate FiO2 12/17/24 23:09 89 18 111/68 99 Room Air* 0 21 12/17/24 22:21 84 18 140/51 99 Room Air* 0 21 Medical Decision Making MDM 64-year-old female with a past medical history of atrial fibrillation presented to the ER complaining of palpitation. Initial workup patient was at sinus rhythm no AFib. She took her home medication propafenone prior come to the ER Blood pressure was elevated with a systolic in the 170s. Ordered: leaf sorter blood pressure Laboratory workup including troponin. Chest x-ray Laboratory in images within normal limits. Patient willing to go home. Blood pressure improved. Heart rate sinus rhythm DX & DISP Disposition: Discharge Departure Impression: Primary Impression: Episode of hypertension Additional Impressions: Paroxysmal atrial fibrillation with rapid ventricular response, Uncontrolled diabetes mellitus with hyperglycemia Condition: Improved Additional Instructions: RETURN TO ER FOR ANY ACUTE OR WORSENING SYMPTOMS. FOLLOW-UP IN 1-2 DAYS WITH PRIMARY PROVIDER FOR RECHECK OF TODAY'S SYMPTOMS. Referrals: RIZWAN MICHAEL (PCP) DEBORA RUBIO MD December 17, 2024 22:33
[2024-12-17 22:45] LABS: APPEARANCE,URINE CLEAR (CLEAR); BILIRUBIN,URINE NEGATIVE (NEGATIVE); COLOR,URINE COLORLESS (YELLOW); GLUCOSE, URINE (UA) >=1000 mg/dL (NEGATIVE); KETONES,URINE 10 mg/dL (NEGATIVE); LEUKOCYTE ESTERASE ,URINE NEGATIVE Leu/uL (NEGATIVE); NITRATE,URINE NEGATIVE (NEGATIVE); OCCULT BLOOD,URINE NEGATIVE (NEGATIVE); PH,URINE 7.5 (5.0-8.0); PROTEIN,URINE NEGATIVE (NEGATIVE); UROBILINOGEN,URINE 0.2 mg/dL (0.2-1.0)
[2024-12-17 22:46] LABS: ADD UA MICROSCOPIC YES
[2024-12-17 22:48] LABS: WBC,URINE 0-1 /HPF (0-1)
--- NOTE | 2024-12-17 23:07 | HMCIMG ---
CHEST 1VW HISTORY: Chest pain COMPARISON: 12/08/2024 FINDINGS: A frontal projection of the chest was obtained. No acute pulmonary infiltrates is seen. The heart is normal in size. Degenerative changes are seen. Prominent interstitial markings are seen No evidence of aortic calcification is seen. IMPRESSION: 1. No acute pulmonary infiltrate is seen.
[2024-12-17 23:21] LABS: B-TYPE NATRIURETIC PEPTIDE 9 pg/mL (0-100)
[2024-12-17 23:35] VITALS: BP 120/59; PULSE 79; RESP 18; O2SAT 100
--- NOTE | 2024-12-18 06:22 | EKG ---
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
== END 2024-12-17 23:37 | disposition home or self-care (01) ==
LOC: EDH 21:54
DX: I10 Essential (primary) hypertension (principal); I48.0 Paroxysmal atrial fibrillation; E11.65 Type 2 diabetes mellitus with hyperglycemia; Z79.01 Long term (current) use of anticoagulants; Z79.4 Long term (current) use of insulin; Z79.899 Other long term (current) drug therapy
CPT/HCPCS: 36415; 71045; 80048; 81001; 82550; 83880; 84484; 85025; 93005; 99285

== ENCOUNTER 2025-05-13 18:44 | Emergency (ER) | payer OTHER ==
[~2025-05-13] VITALS: Ht 162.6 cm; Wt 68.0 kg
[2025-05-13 19:12] LABS: IMMATURE GRANULOCYTE ABSOLUTE 0.02 K/uL (0-1); NUCLEATED RED BLOOD CELLS 0.0 % (0.0-0.19); PLATELET COUNT (AUTO) 208 K/uL (130-400); RED BLOOD CELL COUNT(AUTO) 4.94 MIL/uL (4.00-5.50); RED CELL DISTRIBUTION WIDTH 13.1 % (11.0-15.5); WHITE BLOOD COUNT (AUTO) 8.7 K/uL (4.8-10.8)
[2025-05-13 19:14] LABS: CREATININE 0.7 mg/dL (0.5-1.0); GLOMERULAR FILTR. RATE CALC 97.0 mL/min (>90); GLUCOSE,RANDOM 290.0 mg/dL (70-105); SODIUM SERUM 139.0 mmol/L (136-145); UREA NITROGEN, BLOOD 16.0 mg/dL (7-18)
--- NOTE | 2025-05-13 19:38 | ERN ---
ED Note History of Present Illness Stated Complaint: PALPITATIONS Chief Complaint: Palpitations Time Seen by MD: 19:13 Dictation: Patient is a 64-year-old female with a past medical history of atrial fibrillation, CAD, she presented to the ER due to palpitation. No chest pain. She said that she takes heart rate controlled medication her [id number] mg b.i.d.. We will give her heart rate has been controlled lately but today in the later afternoon she fell palpitation. Pain been here few times in the ER with same symptoms and found to have atrial fibrillation. Allergies: Coded Allergies: No Known Drug Allergies (Unverified Allergy, Unknown, 11/11/21) Home Meds Active Scripts Propafenone HCl (Propafenone HCl) 225 Mg Cap.er.12h, 1 CAP PO BID for 30 Days, #60 CAP 1 Refill Prov:RONALD BADILLO PAC 12/08/24 Reported Medications Famotidine (Famotidine) 40 Mg Tablet, 1 TAB PO DAILY for 30 Days, #30 TAB 0 Refills 11/10/24 Insulin Glargine,Hum.rec.anlog (Lantus Solostar) 100 Unit/Ml (3 Ml) Insuln.pen, 25 UNIT SQ DAILY, SYRINGE 11/10/24 Glimepiride (Glimepiride) 4 Mg Tablet, 1 TAB PO DAILY for 30 Days, #30 TAB 0 Refills 11/10/24 Atorvastatin Calcium (LIPITOR) 40 Mg Tablet, 1 TAB PO DAILY for 30 Days, #30 TAB 0 Refills 11/10/24 Apixaban (Eliquis) 5 Mg Tablet, 1 TAB PO BID for 30 Days, #60 TAB 0 Refills 11/10/24 Past Medical History Past Medical History: A-Fib, Diabetes-Type II Additional Past Medical Hx: HX OF ARRHYTHMIAS Surgical History: Family History: Negative Social History: Negative, Lives with family History: Not Applicable Review of System Dictation NEGATIVE EXCEPT PER HPI Constitutional: Negative for fever,chills, and weight loss Eyes: Negative for injury, pain,redness, and discharge ENT: Negative for injury,pain or swelling Cardiovascular: Reports palpitation Respiratory: Negative for shortness of breath, cough, and wheezing, Abdomen/GI: Negative for abdominal pain, nausea, vomiting, diarrhea, and constipation Back: Negative for injury and pain : Negative for injury, bleeding and discharge MS/Extremity: Negative for injury and deformity Skin: Negative for rash, and discoloration Neuro: Negative for headache, weakness, numbness, tingling, and seizure Psych: Negative for suicide ideation, homicidal ideation, and hallucinations Initial Vital Sign VS Vital Signs Date Time Temp Pulse Resp B/P (MAP) Pulse Ox O2 Delivery O2 Flow Rate FiO2 05/13/25 18:47 97.9 122 18 160/84 98 Room Air 0 05/13/25 19:24 21 Physical Exam Dictation General: awake, alert, NAD Head/Face: Normocephalic, atraumatic Eyes: PERRL, EOMI, vision at baseline ENT: oral cavity clear, TMs clear, no signs of infection Neck: Trachea midline, supple, no nuchal rigidity Cardiovascular: Irregular heart rate Respiratory: CTAB, no respiratory distress, No rales or wheezes Abdomen: Soft , no tender Skin: Warm, dry, normal turgor, no rash MS/Extremity: Pulses equal, no cyanosis, neurovascular intact, FROM Neuro: COAx4, GCS 15, strength 5/5, CN 2-12 intact, normal cerebellar exam, normal gait, Psych: Normal behavior, mood, and affect normal Results (Laboratory/Radiology) Laboratory/Radiology Laboratory Tests Test 05/13/25 19:00 05/13/25 19:40 White Blood Count 8.7 K/uL (4.8-10.8) Red Blood Count 4.94 MIL/uL (4.00-5.50) Hemoglobin 14.9 g/dL (12.0-16.0) Hematocrit 43.4 % (36-48) Mean Corpuscular Volume 87.9 fL (79-99) Mean Corpuscular Hemoglobin 30.2 pg (27.0-33.0) Mean Corpuscular Hemoglobin Concent 34.3 g/dL (32.0-36.0) Red Cell Distribution Width 13.1 % (11.0-15.5) Platelet Count 208 K/uL (130-400) Mean Platelet Volume 10.6 fL (7.5-10.5) H Immature Granulocyte % (Auto) 0.2 % (0-1) Neutrophils (%) (Auto) 46.4 % (40.0-77.0) Lymphocytes (%) (Auto) 43.8 % (21.0-51.0) Monocytes (%) (Auto) 7.9 % (3.0-13.0) Eosinophils (%) (Auto) 1.4 % (0.0-8.0) Basophils (%) (Auto) 0.3 % (0.0-5.0) Neutrophils # (Auto) 4.0 K/uL (1.8-7.7) Lymphocytes # (Auto) 3.8 K/uL (1.0-4.8) Monocytes # (Auto) 0.7 K/uL (0.1-1.0) Eosinophils # (Auto) 0.12 K/uL (0.00-0.70) Basophils # (Auto) 0.03 K/uL (0.00-0.20) Absolute Immature Granulocyte (auto 0.02 K/uL (0-1) Nucleated Red Blood Cells 0.0 % (0.0-0.19) Sodium Level 139 mmol/L (136-145) Potassium Level 3.9 mmol/L (3.5-5.1) Chloride Level 101 mmol/L (101-111) Carbon Dioxide Level 26 mmol/L (21-32) Blood Urea Nitrogen 16 mg/dL (7-18) Creatinine 0.7 mg/dL (0.5-1.0) Glomerular Filtration Rate Calc 97 mL/min (>90) Random Glucose 290 mg/dL (70-105) H Total Calcium 8.9 mg/dL (8.5-10.1) Troponin I High Sensitivity 5 ng/L (4-50) B-Type Natriuretic Peptide 7 pg/mL (0-100) Urine Color LIGHT-YELLOW (YELLOW) Urine Appearance CLEAR (CLEAR) Urine pH 6.5 (5.0-8.0) Urine Specific [place] 1.022 (1.001-1.031) Urine Protein 10 mg/dL (NEGATIVE) H Urine Glucose (UA) >=1000 mg/dL (NEGATIVE) H Urine Ketones NEGATIVE mg/dL (NEGATIVE) Urine Occult Blood NEGATIVE (NEGATIVE) Urine Nitrate NEGATIVE (NEGATIVE) Urine Bilirubin NEGATIVE mg/dL (NEGATIVE) Urine Urobilinogen 0.2 mg/dL (0.2-1.0) Urine Leukocyte Esterase NEGATIVE Pallavi/uL Urine RBC 0-1 /HPF (0-1) Urine WBC 0-1 /HPF (0-1) Urine Squamous Epithelial Cells RARE /HPF (0-2) Urine Bacteria None /HPF (None Seen) EKG Comment: Atrial flutter with two-to-one AV block. Rate 119, QT 319. ED Course ED Course Orders Procedure Category Date Status Time Cbc With Differential LAB 05/13/25 Complete 18:52 Basic Metabolic Panel LAB 05/13/25 Complete 18:52 Troponin I High LAB 05/13/25 Complete Sensitivity 18:52 B-Type Natriuretic LAB 05/13/25 Complete Peptide 18:52 Chest 1vw RAD 05/13/25 Resulted 18:52 Urinalysis Profile LAB 05/13/25 Complete 18:52 Diltiazem 25mg Inj PHA 05/13/25 Complete (Cardizem 25mg Inj) 19:30 Meclizine Hcl 25 Mg PHA 05/13/25 Complete (Antivert 25 Mg) 20:00 Diltiazem 125 Mg/25 PHA 05/13/25 Complete Ml Inj (Diltiazem 12 19:49 Diltiazem 125 Mg/25 PHA 05/13/25 In Process Ml Inj (Diltiazem 12 20:00 12 Lead Ekg Tracing- EKG 05/13/25 Logged Technical 19:55 Current Medications Medications (Trade) Dose Ordered Sig/Gisele Route PRN Reason Start Time Stop Time Status Last Admin Dose Admin Diltiazem HCl (CARDIzem 25MG INJ) 20 mg ONCE ONCE IVP 05/13/25 19:30 05/13/25 19:31 DC 05/13/25 19:31 Diltiazem HCl (dilTIAZem 125MG/ 25 ML INJ) 125 mg STK-MED ONCE IV 05/13/25 19:49 05/13/25 19:49 DC Diltiazem HCl 125 mg/Sodium Chloride 125 ml @ 0 mls/hr PROTOCOL IV 05/13/25 20:00 06/12/25 19:59 05/13/25 19:58 Meclizine HCl (ANTIvert 25 mg) 25 mg ONCE ONCE PO 05/13/25 20:00 05/13/25 20:01 DC 05/13/25 19:57 Vital Signs Date Time Temp Pulse Resp B/P (MAP) Pulse Ox O2 Delivery O2 Flow Rate FiO2 05/13/25 19:58 121 130/70 10/22/25 19:31 126 130/70 05/13/25 19:24 98.1 124 17 130/70 100 Room Air* 0 21 05/13/25 18:47 97.9 122 18 160/84 98 Room Air 0 Medical Decision Making MDM Atrial fibrillation CAD -ordered 1 dose Cardizem IV mg Laboratory Cardiac workup ordered and pending results. CR Chest, 1 View. CLINICAL HISTORY: cp COMPARISON: None provided. FINDINGS: LUNGS: The lungs show no infiltrate or other acute finding. PLEURAL SPACES: No pleural effusion or pneumothorax. MEDIASTINUM: Cardiac size and mediastinal contours within normal limits. BONES: No acute osseous abnormality. IMPRESSION: No acute cardiopulmonary pathology is evident. Laboratory was unremarkable. Patient Rodriguez control after 20 mg Cardizem IV, also good response for drip of Cardizem. Heart rate moment of 59 well-controlled. DX & DISP Disposition: Discharge Departure Impression: Primary Impression: Paroxysmal atrial fibrillation with rapid ventricular response Condition: Stable Additional Instructions: RETURN TO ER FOR ANY ACUTE OR WORSENING SYMPTOMS. FOLLOW-UP IN 1-2 DAYS WITH PRIMARY PROVIDER FOR RECHECK OF TODAY'S SYMPTOMS. Continue Home medications F/U with cardiology Referrals: RIZWAN MICHAEL (PCP) DEBORA RUBIO MD May 13, 2025 19:38
--- NOTE | 2025-05-13 19:42 | HMCIMG ---
EXAM: CR Chest, 1 View. CLINICAL HISTORY: cp COMPARISON: None provided. FINDINGS: LUNGS: The lungs show no infiltrate or other acute finding. PLEURAL SPACES: No pleural effusion or pneumothorax. MEDIASTINUM: Cardiac size and mediastinal contours within normal limits. BONES: No acute osseous abnormality. IMPRESSION: No acute cardiopulmonary pathology is evident. /[place]
--- NOTE | 2025-05-13 20:15 | NUR ---
ISAIAS DICKSON D/C AT THIS TIME, PT CONVERTED TO SINUS TYHM, 12 LEAD EKG OBTAINED AND GIVEN TO RADHA MUNGUIA.
[2025-05-13 20:30] LABS: ADD UA MICROSCOPIC YES; APPEARANCE,URINE CLEAR (CLEAR); GLUCOSE, URINE (UA) >=1000 mg/dL (NEGATIVE); LEUKOCYTE ESTERASE ,URINE NEGATIVE Leu/uL (NEGATIVE); NITRATE,URINE NEGATIVE (NEGATIVE); OCCULT BLOOD,URINE NEGATIVE (NEGATIVE)
[2025-05-13 20:33] LABS: SQUAMOUS EPITHELIAL CELL,UR RARE /HPF (0-2)
[2025-05-13 21:40] VITALS: BP 120/54; PULSE 62; RESP 18; TEMP 98; O2SAT 100
--- NOTE | 2025-05-13 21:40 | NUR ---
PT DISCHARGE EDUCATION GIVEN; PT EDUCATION REINFORCED UPON DISCHARGE BY ED RN AND ED MD THE IMPORTANCE OF TAKING HOME MEDICATIONS TO CONTROL HEART RATE ONCE GETTING HOME. PT VERBALIZED UNDERSTANDING AND STATES SHE WILL TAKE THE MEDICATION WHEN SHE GETS HOME. PT REINFORCED RISKS AND CONSEQUENCES INVOLVED WITH NOT TAKING MEDICATION PRESCTRIBED INCLUDING BUT NOT LIMITED TO . PT STATES UNDERSTANDING. PT TOLD TO RETURN TO NEAREST ER AND OR CALL 911 FOR RETURN OR WORSENING OF SIGNS AND SYMPTOMS. PT AND FAMILY AT BEDSIDE STATES UNDERSTANDING.
--- NOTE | 2025-05-14 03:00 | EKG ---
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
--- NOTE | 2025-05-14 10:46 | EKG ---
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
[2025-05-15] MEDS ORDERED: OMEP40CA21 PO (10:03)
[2025-05-15] MEDS ORDERED: SEMA0.258 SQ (10:09)
[2025-05-16] MEDS ORDERED: DILT120C95 PO (13:13)
== END 2025-05-13 21:40 | disposition home or self-care (01) ==
LOC: EDH 18:44
DX: I48.20 Chronic atrial fibrillation, unspecified (principal); E11.9 Type 2 diabetes mellitus without complications; I25.2 Old myocardial infarction; Z98.890 Other specified postprocedural states; Z79.01 Long term (current) use of anticoagulants; Z79.4 Long term (current) use of insulin; Z79.899 Other long term (current) drug therapy
CPT/HCPCS: 99285; 96365; 71045; 84484; 80048; 83880; 85025; 81001; 36415; 96376; 93005 ×2; J3490 ×2

== ENCOUNTER 2025-05-24 16:13 | Emergency (ER) | payer OTHER ==
[~2025-05-24] VITALS: Ht 162.6 cm; Wt 68.0 kg
[~2025-05-24 16:13] MED LIST changes: +DILT120C95 PO; -FAMO40TA7 PO; +OMEP40CA21 PO; +SEMA0.258 SQ
--- NOTE | 2025-05-24 17:12 | NUR ---
PATIENT CARE ASSUMED AT THIS TIME.
[2025-05-24 17:15] VITALS: BP 13/79; PULSE 83; RESP 17; TEMP 97.8; O2SAT 96
[2025-05-24 17:20] LABS: IMMATURE GRANULOCYTE ABSOLUTE 0.02 K/uL (0-1); NUCLEATED RED BLOOD CELLS 0.0 % (0.0-0.19); PLATELET COUNT (AUTO) 195 K/uL (130-400); RED BLOOD CELL COUNT(AUTO) 4.66 MIL/uL (4.00-5.50); RED CELL DISTRIBUTION WIDTH 13.2 % (11.0-15.5); WHITE BLOOD COUNT (AUTO) 8.0 K/uL (4.8-10.8)
[2025-05-24 17:31] LABS: INR 1.08 (0.85-1.15)
[2025-05-24 17:34] LABS: CREATININE 0.8 mg/dL (0.5-1.0); GLOMERULAR FILTR. RATE CALC 82.0 mL/min (>90); GLUCOSE,RANDOM 327.0 mg/dL (70-105); SODIUM SERUM 137.0 mmol/L (136-145); UREA NITROGEN, BLOOD 17.0 mg/dL (7-18)
[2025-05-24 17:39] LABS: CREATINE KINASE, TOTAL 114.0 U/L (21-232)
[2025-05-24] MEDS ORDERED: MAGNESIUM CHLORIDE 64 MG TABLET.SA PO STA (17:46)
--- NOTE | 2025-05-24 17:49 | ERN ---
General Chief Complaint: Rapid Heart Rate Stated Complaint: RAPID HEART RATE Time Seen by MD: 16:19 Source: patient History of Present Illness Initial Comments PATIENT IS A 64-YEAR-OLD FEMALE COMING IN COMPLAINING OF RAPID HEART RATE. 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 Allergies: Coded Allergies: No Known Drug Allergies (Unverified Allergy, Unknown, 11/11/21) Home Meds Active Scripts Diltiazem HCl (Diltiazem 24Hr Cd) 120 Mg Cap.er.24h, 1 CAP PO DAILY for 30 Days, #30 CAP 0 Refills Prov:CARLOS BRAVO AGACNP 05/16/25 Propafenone HCl (Propafenone HCl) 225 Mg Cap.er.12h, 1 CAP PO BID for 30 Days, #60 CAP 1 Refill Prov:RONALD BADILLO PAC 12/08/24 Reported Medications Semaglutide (Ozempic) 0.25 Mg/0.368 Ml Pen.injctr, 0.25 MG SQ QWEEK 05/15/25 Omeprazole (Omeprazole) 40 Mg Capsule.dr, 40 MG PO DAILY, CAP 05/15/25 Insulin Glargine,Hum.rec.anlog (Lantus Solostar) 100 Unit/Ml (3 Ml) Insuln.pen, 30 UNIT SQ DAILY, SYRINGE 11/10/24 Glimepiride (Glimepiride) 4 Mg Tablet, 1 TAB PO DAILY for 30 Days, #30 TAB 0 Refills 11/10/24 Atorvastatin Calcium (LIPITOR) 40 Mg Tablet, 1 TAB PO DAILY for 30 Days, #30 TAB 0 Refills 11/10/24 Apixaban (Eliquis) 5 Mg Tablet, 1 TAB PO BID for 30 Days, #60 TAB 0 Refills 11/10/24 Past Medical History Past Medical History: A-Fib, Diabetes-Type II, Hypertension Medical History Other: HX OF ARRHYTHMIAS Past Surgical History: Unknown Family History Family History: Negative Social History Social History: Negative, Lives with family Female( History) History: Not Applicable ROS Dictation CONSTITUTIONAL: NO CHILLS, NO FEVER, NO WEAKNESS, NO DIAPHORESIS, NO MALAISE. HEAD/FACE: NO SIGNS OF TRAUMA. EENT: NO EYE PAIN, NO BLURRED VISION, NO TEARING, NO DOUBLE VISION, NO EAR PAIN, NO EAR DISCHARGE, NO NOSE PAIN, NO NASAL CONGESTION, NO THROAT PAIN, NO THROAT SWELLING, NO MOUTH PAIN. RESPIRATORY: NO COUGH, NO ORTHOPNEA, NO SOB, NO STRIDOR, NO WHEEZING. CARDIOVASCULAR: NO CHEST PAIN, NO EDEMA, PALPITATIONS, NO SYNCOPE. GASTROINTESTINAL/ABDOMINAL: NO ABDOMINAL PAIN, NO CONSTIPATION, NO DIARRHEA, NO NAUSEA, NO VOMITING. GENITOURINARY: NO ABNORMAL DISCHARGE, NO DYSURIA, NO FREQUENT URINATION, NO HEMATURIA. NO COMPLAINTS OF PAIN IN THE GENITALS. MUSCULOSKELETAL: NO BACK PAIN, NO GOUT, NO JOINT PAIN, NO JOINT SWELLING, NO MUSCLE PAIN, NO MUSCLE STIFFNESS, NO NECK PAIN. INTEGUMENTARY: NO CHANGE IN COLOR, NO CHANGE IN HAIR/NAILS, NO DRYNESS, NO LESION, NO LUMPS, NO RASH. NEUROLOGICAL/PSYCH: NO ANXIETY, NOT DEPRESSED, NO EMOTIONAL PROBLEM, NO HEADACHE, NO NUMBNESS, NO PRE-EXISTING DEFICIT, NO HISTORY OF SEIZURES, NO TREMORS, NO WEAKNESS. HEMATOLOGIC/LYMPHATIC: NOT ANEMIC, NO HISTORY OF BLOOD CLOTS, NO APPARENT BLEEDING, NO BRUISING, GLANDS NOT SWOLLEN. ALL SYSTEMS NEGATIVE, EXCEPT NOTED. Physical Exam Physical Exam Dictation VITAL SIGNS: REVIEWED. GENERAL APPEARANCE: ALERT, ORIENTED X3, NO ACUTE DISTRESS, OBESE. HEAD AND FACE: NON-TRAUMATIC. EYES: PERRL, PINK CONJUNCTIVAS, EYELID NO TRAUMA, ANTERIOR CHAMBER CLEAR. EARS: PINNAS INTACT AND NO SIGNS OF TRAUMA OR ERYTHEMA. EAR CANALS CLEAR AND NO DISCHARGE. TMS NO ERYTHEMA. NOSE: NO DISCHARGE, NO BLEEDING. OROPHARYNX: MOUTH NORMAL, TEETH NO CARIES, TONGUE PINK. PHARYNX CLEAR, NO ERYTHEMA. TONSILS NO EXUDATES, NO ABSCESSES NOTED. MUCOUS MEMBRANE MOIST. NECK: SUPPLE, NON-TENDER, NO THYROMEGALY, NO MASSES, NO JVD, NO BRUITS. BREAST: DEFERRED. CHEST: NO TENDERNESS, NO CREPITUS, NO PARADOXICAL MOVEMENT, NO RETRACTIONS. LUNGS: CLEAR, WELL-VENTILATED, SYMMETRIC, NO RALES, NO WHEEZING, NO RHONCHI, NO STRIDOR, GOOD BREATH SOUNDS BILATERALLY. HEART: TACHYCARDIA, REGULAR RHYTHM, NO MURMUR, NO GALLOPS. VASCULAR: NO PERIPHERAL EDEMA. ABDOMEN: SOFT, POSITIVE BOWEL SOUNDS, NONDISTENDED, NO GUARDING, NONTENDER, NO REBOUND, NO MASSES NO HEPATOMEGALY, NO SPLENOMEGALY, NO COCHRAN'S SIGN, NO HERNIAS. RECTAL: DEFERRED. GENITAL: DEFERRED. NEUROLOGICAL: NORMAL SPEECH, GROSS MOTOR FUNCTION INTACT, GROSS SENSORY FUNCTION INTACT. MUSCULOSKELETAL: NECK NONTENDER, FULL RANGE OF MOTION, BACK NONTENDER, FULL RANGE OF MOTION. EXTREMITIES: NONTENDER, FULL RANGE OF MOTION. SKIN: COLOR PINK, DRY, NO TURGOR, NO RASH, NO LACERATIONS, NO ABRASIONS, NO CONTUSIONS. LYMPHATICS: DEFERRED. Results Laboratory and Microbiology Lab and Micro Result Laboratory Tests Test 05/24/25 17:00 05/24/25 17:24 White Blood Count 8.0 K/uL (4.8-10.8) Red Blood Count 4.66 MIL/uL (4.00-5.50) Hemoglobin 14.1 g/dL (12.0-16.0) Hematocrit 42.0 % (36-48) Mean Corpuscular Volume 90.1 fL (79-99) Mean Corpuscular Hemoglobin 30.3 pg (27.0-33.0) Mean Corpuscular Hemoglobin Concent 33.6 g/dL (32.0-36.0) Red Cell Distribution Width 13.2 % (11.0-15.5) Platelet Count 195 K/uL (130-400) Mean Platelet Volume 10.8 fL (7.5-10.5) H Immature Granulocyte % (Auto) 0.2 % (0-1) Neutrophils (%) (Auto) 42.4 % (40.0-77.0) Lymphocytes (%) (Auto) 48.4 % (21.0-51.0) Monocytes (%) (Auto) 7.5 % (3.0-13.0) Eosinophils (%) (Auto) 1.1 % (0.0-8.0) Basophils (%) (Auto) 0.4 % (0.0-5.0) Neutrophils # (Auto) 3.4 K/uL (1.8-7.7) Lymphocytes # (Auto) 3.9 K/uL (1.0-4.8) Monocytes # (Auto) 0.6 K/uL (0.1-1.0) Eosinophils # (Auto) 0.09 K/uL (0.00-0.70) Basophils # (Auto) 0.03 K/uL (0.00-0.20) Absolute Immature Granulocyte (auto 0.02 K/uL (0-1) Nucleated Red Blood Cells 0.0 % (0.0-0.19) Prothrombin Time 11.4 SEC (9.6-11.6) Prothromb Time International Ratio 1.08 (0.85-1.15) Activated Partial Thromboplast Time 28.1 SEC (26.3-35.5) Sodium Level 137 mmol/L (136-145) Potassium Level 3.7 mmol/L (3.5-5.1) Chloride Level 100 mmol/L (101-111) L Carbon Dioxide Level 26 mmol/L (21-32) Blood Urea Nitrogen 17 mg/dL (7-18) Creatinine 0.8 mg/dL (0.5-1.0) Glomerular Filtration Rate Calc 82 mL/min (>90) Random Glucose 327 mg/dL (70-105) H Total Calcium 8.9 mg/dL (8.5-10.1) Magnesium Level 1.60 mg/dL (1.80-2.40) L Total Creatine Kinase 114 U/L (21-232) # Troponin I High Sensitivity 5 ng/L (4-50) Urine Color COLORLESS (YELLOW) Urine Appearance CLEAR (CLEAR) Urine pH 6.0 (5.0-8.0) Urine Specific [place] 1.016 (1.001-1.031) Urine Protein NEGATIVE mg/dL (NEGATIVE) Urine Glucose (UA) >=1000 mg/dL (NEGATIVE) H Urine Ketones NEGATIVE mg/dL (NEGATIVE) Urine Occult Blood NEGATIVE (NEGATIVE) Urine Nitrate NEGATIVE (NEGATIVE) Urine Bilirubin NEGATIVE mg/dL (NEGATIVE) Urine Urobilinogen 0.2 mg/dL (0.2-1.0) Urine Leukocyte Esterase NEGATIVE Pallavi/uL Urine RBC 2-5 /HPF (0-1) H Urine WBC 6-10 /HPF (0-1) H Urine Squamous Epithelial Cells RARE /HPF (0-2) Urine Bacteria None /HPF (None Seen) Labs Reviewed?: Yes EKG/XRAY/US/CT/MRI EKG Comment 05/24/2025 TIME 4:02 P.M. VENTRICULAR RATE [address] WAVE ELEVATION OR DEPRESSION X-RAY Comment [facility] [address] [address] IMAGING REPORT Signed PATIENT: JAKE NDIAYE MR#: [id number] : 1960 SEX: F AGE: 64 LOCATION: ED ORDER 20 STATUS: REG ER REPORT#: [id number] SERVICE 19 REASON: CP ORDERING PHYSICIAN: RASHID EDGAR MD PROCEDURE: CXR1VW - CHEST 1VW EXAM: CR Chest, 1 View. CLINICAL HISTORY: CP COMPARISON: None provided. FINDINGS: LUNGS: The lungs show no infiltrate or other acute finding. PLEURAL SPACES: No pleural effusion or pneumothorax. MEDIASTINUM: The cardiomediastinal silhouette is within normal limits. BONES: No aggressive appearing osseous lesion seen. IMPRESSION: No acute cardiopulmonary pathology is evident. /[place] DICTATED BY: DURAN DE LA PAZ Jr., MD DATE: 05/24/251912 ELECTRONICALLY SIGNED BY: DURAN DE LA PAZ Jr., MD DATE: 05/24/251912 [facility] MDM: DIFFERENTIAL DIAGNOSIS: DIABETES MELLITUS HYPERGLYCEMIA, ARRHYTHMIAS, HYPOMAGN ESEMIA, RATIONALE: TESTS CONSIDERED AND ORDERED SECONDARY TO SHARED DECISION MAKING INCLUDE: PREVIOUS OUTSIDE RECORDS REVIEWED: OLD ER VISITS. RISK OF COMPLICATION AND/OR MORBIDITY OR MORTALITY OF PATIENT MANAGEMENT: NONE MEDICATIONS-PER MEDICATION RECONCILIATION NEED FOR HOSPITALIZATION: PATIENT DOES MEET CRITERIA FOR HOSPITALIZATION. NEED FOR EMERGENCY MAJOR/MINOR SURGERY: NO THERE ARE NO SOCIAL CONCERNS WITH THIS PATIENT. PRESCRIPTION DRUG MANAGEMENT PRESCRIPTIONS WILL INCLUDE SYMPTOMATIC CARE PATIENT'S PRIOR EXTERNAL MEDICAL RECORDS FROM OTHER ER VISITS WERE REVIEWED BY ME INDICATED. PRIOR TESTING AND RESULTS FROM PREVIOUS VISITS WERE REVIEWED. PRIOR TESTS WERE TAKEN INTO ACCOUNT WITH MEDICAL DECISION MAKING AND RESOURCE UTILIZATION, INDEPENDENT HISTORIAN/HISTORIANS WERE USED TO OBTAIN COMPLETE MEDICAL HISTORY. I INDEPENDENTLY INTERPRETED THE TEST THAT WERE PERFORMED, RESULTS WERE REVIEWED BY ME AND CONSIDERED FINDINGS ON RADIOLOGY IF ORDERED. MEDICAL MANAGEMENT AND EXAMINATION INTERPRETATION DISCUSSIONS WERE HAD BY ME WITH OTHER QUALIFIED HEALTHCARE PROFESSIONALS INDICATED FOR THE PATIENT'S CARE. I ADVISED PATIENT OF THE FINDINGS OF THE REGULAR HEARTBEAT ARRHYTHMIAS IN HIS ADVISE HER THAT WE NEEDED TO KEEP HER PATIENT REFUSED STATES HE IS GOING TO FOLLOW UP WITH THE FIRE LOSS PREVENTION ENGINEER TOMORROW. PATIENT HAD HYPOMAGNESEMIA ELEVATED GLUCOSE WAS HYDRATED WITH IV FLUIDS AND RECEIVED IV MAGNESIUM. I DID ADVISE HER IF SHE CHANGES HER MIND SHE COULD ALWAYS FOLLOW UP WITH THE NEAREST ER OR WITH THE PCP. ED Course Orders Procedure Category Date Status Time Cbc With Differential LAB 05/24/25 Complete 16:20 Prothrombin Time With LAB 05/24/25 Complete INR 16:20 Chest 1vw RAD 05/24/25 Resulted 16:20 12 Lead Ekg Tracing- EKG 05/24/25 Logged Technical 16:20 Magnesium LAB 05/24/25 Complete 16:20 Creatine Kinase, Total LAB 05/24/25 Complete 16:20 Troponin I High LAB 05/24/25 Complete Sensitivity 16:20 Urinalysis Profile LAB 05/24/25 Complete 16:20 Partial LAB 05/24/25 Complete Thromboplastin Time 16:20 Basic Metabolic Panel LAB 05/24/25 Complete 16:20 Culture Urine RICHARD 05/24/25 In Process 17:56 Magnesium Chloride PHA 05/24/25 Complete (Slow-Mag) 18:18 Current Medications Medications (Trade) Dose Ordered Sig/Gisele Route PRN Reason Start Time Stop Time Status Last Admin Dose Admin Magnesium Chloride (Slow-Mag) 64 mg ONCE STAT PO 05/24/25 17:46 05/24/25 17:47 UNV Magnesium Chloride (Slow-Mag) 64 mg ONCE STAT PO 05/24/25 18:18 05/24/25 18:19 DC 05/24/25 18:30 Vital Signs Date Time Temp Pulse Resp B/P (MAP) Pulse Ox O2 Delivery O2 Flow Rate FiO2 05/24/25 17:15 97.9 83 17 13/79 96 Room Air* 0 21 05/24/25 16:14 97.7 141 20 149/86 100 Room Air 0 DX & DISP Disposition: AMA Departure Impression: Primary Impression: Paroxysmal atrial fibrillation with rapid ventricular response Additional Impression: Uncontrolled diabetes mellitus with hyperglycemia Condition: Against Medical Advice Additional Instructions: PATIENT DECIDED TO LEAVE AGAINST MEDICAL ADVICE. Referrals: RIZWAN MICHAEL (PCP) Time of Disposition: 18:47 RASHID EDGAR MD May 24, 2025 17:49
[2025-05-24 17:53] LABS: APPEARANCE,URINE CLEAR (CLEAR); GLUCOSE, URINE (UA) >=1000 mg/dL (NEGATIVE); LEUKOCYTE ESTERASE ,URINE NEGATIVE Leu/uL (NEGATIVE); NITRATE,URINE NEGATIVE (NEGATIVE); OCCULT BLOOD,URINE NEGATIVE (NEGATIVE)
[2025-05-24 17:55] LABS: ADD UA MICROSCOPIC YES; SQUAMOUS EPITHELIAL CELL,UR RARE /HPF (0-2)
--- NOTE | 2025-05-24 18:15 | HMCIMG ---
EXAM: CR Chest, 1 View. CLINICAL HISTORY: CP COMPARISON: None provided. FINDINGS: LUNGS: The lungs show no infiltrate or other acute finding. PLEURAL SPACES: No pleural effusion or pneumothorax. MEDIASTINUM: The cardiomediastinal silhouette is within normal limits. BONES: No aggressive appearing osseous lesion seen. IMPRESSION: No acute cardiopulmonary pathology is evident. /[place]
[2025-05-24] MEDS: MAGNESIUM CHLORIDE 64 MG TABLET.SA PO STA (18:30)
--- NOTE | 2025-05-24 18:39 | NUR ---
AFTER MEDICATING THE PATIENT, THE PATIENT DESIRES TO LEAVE AGAINST MEDICAL ADVICE. THE PATIENT WAS EDUCATED ON THE RISKS OF LEAVING BEFORE TREATMENT IS COMPLETE AND VERBALIZED UNDERSTANDING, STATING SHE HAS AN APPOINTMENT WITH A [employer] TOMORROW. AMA FORM SIGNED AND PLACED IN CHART.
--- NOTE | 2025-05-25 06:18 | EKG ---
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
== END 2025-05-24 18:40 | disposition left against medical advice (07) ==
LOC: EDH 16:13
DX: I48.20 Chronic atrial fibrillation, unspecified (principal); E11.65 Type 2 diabetes mellitus with hyperglycemia; I10 Essential (primary) hypertension; Z79.899 Other long term (current) drug therapy; Z79.01 Long term (current) use of anticoagulants; Z79.4 Long term (current) use of insulin; Z79.85 Long-term (current) use of injectable non-insulin antidiabetic drugs
CPT/HCPCS: 36415; 71045; 80048; 81001; 82550; 83735; 84484; 85025; 85610; 85730; 87086; 93005; 99285

== ENCOUNTER 2025-07-01 18:51 | Emergency (ER) | payer OTHER ==
[~2025-07-01] VITALS: Ht 162.6 cm; Wt 68.0 kg
--- NOTE | 2025-07-01 19:02 | ERN ---
ED Note History of Present Illness Stated Complaint: PALPITATIONS Chief Complaint: Palpitations Time Seen by MD: 19:00 Time Seen by Midlevel: 19:05 Dictation: Ms. Reeves is a 64-year-old female with history of atrial fibrillation/chronic anticoagulation, hypertension, hyperlipidemia, type 2 diabetes, and GERD who presented to the emergency department this evening for evaluation of palpitations. She reports palpitations/rapid heart rate accompanied by shortness of breath and dizziness. 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 Home Meds Active Scripts Diltiazem HCl (Diltiazem 24Hr Cd) 120 Mg Cap.er.24h, 1 CAP PO DAILY for 30 Days, #30 CAP 0 Refills Prov:CARLOS BRAVO 05/16/25 Propafenone HCl (Propafenone HCl) 225 Mg Cap.er.12h, 1 CAP PO BID for 30 Days, #60 CAP 1 Refill Prov:RONALD BADILLO 12/08/24 Reported Medications Semaglutide (Ozempic) 0.25 Mg/0.368 Ml Pen.injctr, 0.25 MG SQ QWEEK 05/15/25 Omeprazole (Omeprazole) 40 Mg Capsule.dr, 40 MG PO DAILY, CAP 05/15/25 Insulin Glargine,Hum.rec.anlog (Lantus Solostar) 100 Unit/Ml (3 Ml) Insuln.pen, 30 UNIT SQ DAILY, SYRINGE 11/10/24 Glimepiride (Glimepiride) 4 Mg Tablet, 1 TAB PO DAILY for 30 Days, #30 TAB 0 Refills 11/10/24 Atorvastatin Calcium (LIPITOR) 40 Mg Tablet, 1 TAB PO DAILY for 30 Days, #30 TAB 0 Refills 11/10/24 Apixaban (Eliquis) 5 Mg Tablet, 1 TAB PO BID for 30 Days, #60 TAB 0 Refills 11/10/24 Past Medical History Past Medical History: A-Fib, Arrythmia, Diabetes-Type II, High Cholesterol, Hypertension Additional Past Medical Hx: HX OF ARRHYTHMIAS Surgical History: Unknown PSYCH History: no pertinent psych hx Family History: Negative Social History: Negative, Lives with family History: Not Applicable RN Note Reviewed/Agreed w/PFSH: Yes Review of System Dictation REVIEW OF SYSTEMS: CONSTITUTIONAL: Patient denies fevers, chills, sweats and weight changes. EYES: Patient denies any visual symptoms. EARS, NOSE, AND THROAT: No difficulties with hearing. No symptoms of rhinitis or sore throat. CARDIOVASCULAR: Patient denies chest pains, orthopnea and paroxysmal nocturnal dyspnea. Reports palpitations/rapid heart rate. Reports history of atrial fibrillation. RESPIRATORY: No wheezing or cough. Reports shortness of breath. GI: No nausea, vomiting, diarrhea, constipation, abdominal pain, hematochezia or melena. : No urinary hesitancy or dribbling. No nocturia or urinary frequency. No abnormal urethral discharge. MUSCULOSKELETAL: No myalgias or arthralgias. NEUROLOGIC: No chronic headaches, no seizures. Patient denies numbness, tingling or weakness. Reports dizziness. PSYCHIATRIC: Patient denies problems with mood disturbance. No problems with anxiety. ENDOCRINE: No excessive urination or excessive thirst. DERMATOLOGIC: Patient denies any rashes or skin changes. Initial Vital Sign VS Vital Signs Date Time Temp Pulse Resp B/P (MAP) Pulse Ox O2 Delivery O2 Flow Rate FiO2 07/01/25 18:52 97.9 124 20 115/97 99 Room Air 07/01/25 20:46 0 21 Physical Exam Dictation Vital signs: Reviewed. Afebrile. Constitutional: No acute distress. Non-toxic appearing. Head/Face: Normocephalic, atraumatic. Eyes: Periorbital areas with no swelling, redness, or edema. Lids and lashes are normal. Conjunctival injection is absent. Sclera anicteric. Pupils equal, round, reactive to light. ENT: Pinnas intact and no signs of trauma or erythema. Ear canals clear and no discharge. TMs no erythema. No nasal discharge or bleeding noted. Oropharynx with no exudate, redness, swelling, masses, exudates, or evidence of obstruction. Uvula midline. Mucous membranes moist. Neck: Trachea midline, no masses palpated, and no cervical lymphadenopathy. No swelling. Supple, full range of motion. Chest/Axilla: No tenderness, no crepitus, no paradoxical movement, no retractions. Cardiovascular: Irregular rate, regular rhythm, no murmur, no gallops. Symmetric pulses. No peripheral edema. Twelve lead EKG reflects atrial fibrillation with ventricular rate 139. Chest pain 0/10 Respiratory: Respirations even and unlabored. Lung sounds clear; no wheezes, rales or rhonchi. Room air SpO2 99% Gastrointestinal: Inspection is normal. No distention is appreciated. Bowel sounds are normal. No mass or organomegaly . There is no tenderness. No rebound. No rigidity. No voluntary or involuntary guarding. No Balbuena's sign. Neurological: Normal speech, gross motor function intact, gross sensory function intact. No focal weakness/Paresthesia. Musculoskeletal/Extremities: All extremities have full range of motion, no pain or tenderness on palpation. Symmetric pulses. Integumentary: Intact. Skin is normal color, warm and dry. Cap refill less than 3 seconds. Results (Laboratory/Radiology) Laboratory/Radiology Laboratory Tests Test 07/01/25 19:05 07/01/25 19:09 Urine Color COLORLESS (YELLOW) Urine Appearance CLEAR (CLEAR) Urine pH 7.5 (5.0-8.0) Urine Specific [place] 1.018 (1.001-1.031) Urine Protein NEGATIVE mg/dL (NEGATIVE) Urine Glucose (UA) >=1000 mg/dL (NEGATIVE) H Urine Ketones NEGATIVE mg/dL (NEGATIVE) Urine Occult Blood NEGATIVE (NEGATIVE) Urine Nitrate NEGATIVE (NEGATIVE) Urine Bilirubin NEGATIVE mg/dL (NEGATIVE) Urine Urobilinogen 0.2 mg/dL (0.2-1.0) Urine Leukocyte Esterase NEGATIVE Pallavi/uL Urine RBC 0-1 /HPF (0-1) Urine WBC 2-5 /HPF (0-1) H Urine Squamous Epithelial Cells RARE /HPF (0-2) Urine Bacteria RARE /HPF (None Seen) White Blood Count 8.6 K/uL (4.8-10.8) Red Blood Count 4.82 MIL/uL (4.00-5.50) Hemoglobin 14.7 g/dL (12.0-16.0) Hematocrit 43.6 % (36-48) Mean Corpuscular Volume 90.5 fL (79-99) Mean Corpuscular Hemoglobin 30.5 pg (27.0-33.0) Mean Corpuscular Hemoglobin Concent 33.7 g/dL (32.0-36.0) Red Cell Distribution Width 12.7 % (11.0-15.5) Platelet Count 198 K/uL (130-400) Mean Platelet Volume 10.8 fL (7.5-10.5) H Immature Granulocyte % (Auto) 0.1 % (0-1) Neutrophils (%) (Auto) 44.5 % (40.0-77.0) Lymphocytes (%) (Auto) 45.8 % (21.0-51.0) Monocytes (%) (Auto) 7.9 % (3.0-13.0) Eosinophils (%) (Auto) 1.2 % (0.0-8.0) Basophils (%) (Auto) 0.5 % (0.0-5.0) Neutrophils # (Auto) 3.8 K/uL (1.8-7.7) Lymphocytes # (Auto) 3.9 K/uL (1.0-4.8) Monocytes # (Auto) 0.7 K/uL (0.1-1.0) Eosinophils # (Auto) 0.10 K/uL (0.00-0.70) Basophils # (Auto) 0.04 K/uL (0.00-0.20) Absolute Immature Granulocyte (auto 0.01 K/uL (0-1) Nucleated Red Blood Cells 0.0 % (0.0-0.19) Sodium Level 134 mmol/L (136-145) L Potassium Level 3.7 mmol/L (3.5-5.1) Chloride Level 98 mmol/L (101-111) L Carbon Dioxide Level 28 mmol/L (21-32) Blood Urea Nitrogen 17 mg/dL (7-18) Creatinine 0.9 mg/dL (0.5-1.0) Glomerular Filtration Rate Calc 71 mL/min (>90) Random Glucose 376 mg/dL (70-105) H Total Calcium 9.1 mg/dL (8.5-10.1) Troponin I High Sensitivity 5 ng/L (4-50) Labs Reviewed?: Yes EKG Comment: EKG Interpretation: Time Reviewed: 1841 Ventricular rate: 139 bpm QRS duration: [address] segment elevation or depression. Clinical impression: Atrial fibrillation with rapid ventricular response EKG Reviewed and interpreted by Dr. Bari Holcomb X-RAY Comment: PATIENT: JAKE REEVES MR#: [id number] : 1960 SEX: F AGE: 64 LOCATION: [facility] ORDER 56 STATUS: REG ER REPORT#: [id number] SERVICE 55 REASON: CHEST PAIN ORDERING PHYSICIAN: SEKOU HOLCOMB MD PROCEDURE: CXR1VW - CHEST 1VW EXAM: CR Chest, 1 View. CLINICAL HISTORY: CHEST PAIN COMPARISON: None provided. FINDINGS: LUNGS: There is no mass, infiltrate, or acute pulmonary abnormality. PLEURAL SPACES: No evidence of pleural effusion or pneumothorax. MEDIASTINUM: Cardiac size and mediastinal contours within normal limits. BONES: No acute osseous abnormality. IMPRESSION: No acute cardiopulmonary pathology is evident. /[place] DICTATED BY: DURAN DE LA PAZ Jr., MD DATE: 07/01/252111 ELECTRONICALLY SIGNED BY: DURAN DE LA PAZ Jr., MD DATE: 07/01/252111 ED Course ED Course Orders Procedure Category Date Status Time Chest 1vw RAD 07/01/25 Resulted 18:56 12 Lead Ekg Tracing- EKG 07/01/25 Logged Technical 18:56 Oxygen By Nc/Pulse Ox CPOE 07/01/25 Transmitted 18:56 Iv Insertion CPOE 07/01/25 Transmitted 18:56 Cardiac Monitoring CPOE 07/01/25 Transmitted 18:56 Cbc With Differential LAB 07/01/25 Complete 18:56 Troponin I High LAB 07/01/25 Complete Sensitivity 18:56 Urinalysis Profile LAB 07/01/25 Complete 18:56 Basic Metabolic Panel LAB 07/01/25 Complete 18:56 Vital Signs Date Time Temp Pulse Resp B/P (MAP) Pulse Ox O2 Delivery O2 Flow Rate FiO2 07/01/25 20:46 98.2 83 16 124/59 99 Room Air* 0 21 07/01/25 18:52 97.9 124 20 115/97 99 Room Air Vital signs remained stable. Patient arrived with tachycardic heart rate; 136. Twelve lead EKG reflected atrial fibrillation with rapid ventricular response; no elevation. She denies chest pain or shortness of breath. She took her HS dose of antiarrhythmic and Eliquis. She states that her symptoms are resolved and she does not want to stay in hospital for admission. She has signed out against medical advice. Medical Decision Making MDM MDM: Differential diagnosis: Atrial fibrillation with rapid ventricular response, ACS, electrolyte derangement, syncope Rationale: Tests considered and ordered secondary to shared decision making include: EKG, chest x-ray, lab Previous outside records reviewed: Old ER visits. Risk of complication and/or morbidity or mortality of patient management: None Medications-Per medication reconciliation Need for hospitalization: Patient does not meet criteria for hospitalization. Need for emergency major/minor surgery: No There are no social concerns with this patient. Prescription drug management: N/A; patient is continuing her home medications. Prescriptions will include symptomatic care Patient's prior external medical records from other ER visits were reviewed by me as indicated. Prior testing and results from previous visits were reviewed. Prior tests were taken into account with medical decision making and resource utilization, independent historian/historians were used to obtain complete medical history. I independently interpreted the test that were performed, results were reviewed by me and considered findings on radiology if ordered. Medical management and examination interpretation discussions were had by me with other qualified healthcare professionals as indicated for the patient's care. DX & DISP Disposition: AMA Departure Impression: Primary Impression: Atrial fibrillation with RVR Additional Impression: Dizziness Condition: Stable Additional Instructions: Patient has signed out against medical advice. She states that all symptoms resolved after taking her HS dose of antiarrhythmic and Eliquis. She states she will follow up with her primary care physician and/or math and science instructor; Dr. Olguin. Eyes to return immediately to the emergency department if she experiences any chest pain, return if palpitations, shortness of breath, or other concerns. Patient and family verbalized understanding. Referrals: RIZWAN MICHAEL (PCP) Time of Disposition: 20:56 AGATHA ESPINAL Jul 01, 2025 19:02
[2025-07-01 19:16] LABS: IMMATURE GRANULOCYTE ABSOLUTE 0.01 K/uL (0-1); NUCLEATED RED BLOOD CELLS 0.0 % (0.0-0.19); PLATELET COUNT (AUTO) 198 K/uL (130-400); RED BLOOD CELL COUNT(AUTO) 4.82 MIL/uL (4.00-5.50); RED CELL DISTRIBUTION WIDTH 12.7 % (11.0-15.5); WHITE BLOOD COUNT (AUTO) 8.6 K/uL (4.8-10.8)
[2025-07-01 19:23] LABS: APPEARANCE,URINE CLEAR (CLEAR); GLUCOSE, URINE (UA) >=1000 mg/dL (NEGATIVE); LEUKOCYTE ESTERASE ,URINE NEGATIVE Leu/uL (NEGATIVE); NITRATE,URINE NEGATIVE (NEGATIVE); OCCULT BLOOD,URINE NEGATIVE (NEGATIVE)
[2025-07-01 19:24] LABS: ADD UA MICROSCOPIC YES
[2025-07-01 19:26] LABS: CREATININE 0.9 mg/dL (0.5-1.0); GLOMERULAR FILTR. RATE CALC 71.0 mL/min (>90); GLUCOSE,RANDOM 376.0 mg/dL (70-105); SODIUM SERUM 134.0 mmol/L (136-145); UREA NITROGEN, BLOOD 17.0 mg/dL (7-18)
[2025-07-01 19:30] LABS: SQUAMOUS EPITHELIAL CELL,UR RARE /HPF (0-2)
--- NOTE | 2025-07-01 20:13 | HMCIMG ---
EXAM: CR Chest, 1 View. CLINICAL HISTORY: CHEST PAIN COMPARISON: None provided. FINDINGS: LUNGS: There is no mass, infiltrate, or acute pulmonary abnormality. PLEURAL SPACES: No evidence of pleural effusion or pneumothorax. MEDIASTINUM: Cardiac size and mediastinal contours within normal limits. BONES: No acute osseous abnormality. IMPRESSION: No acute cardiopulmonary pathology is evident. /[place]
[2025-07-01 20:46] VITALS: BP 124/59; PULSE 83; RESP 16; TEMP 98.2; O2SAT 99
--- NOTE | 2025-07-01 20:48 | NUR ---
PATIENT DENIES ANY SYMPTOMS AT THIS TIME. DOES NOT WANT TO BE ADMITTED. ER PROVIDER AGATHA ESPINAL NP AWARE. PATIENT SIGNED AMA
--- NOTE | 2025-07-02 07:03 | EKG ---
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 : 1960 Requested By: SEKOU HOLCOMB Order Number: [id number] Reading MD: Manny Smith Measurements Intervals [place] Rate: 139 P: 0 IA: 0 QRS: -57 QRSD: 92 T: 134 QT: 311 QTc: 482 Interpretive Statements Atrial flutter with predominant 2:1 AV block Left anterior fascicular block Consider anterior infarct Compared to ECG 05/24/2025 16:02:58 2:1 AV block now present Left anterior fascicular block now present Myocardial infarct finding now present Left-axis deviation no longer present Electronically Signed On 07-03-2025 08:48:12 JAILOR by Manny Smith Please click the below link to view image of tracing.
== END 2025-07-01 20:53 | disposition left against medical advice (07) ==
LOC: EDH 18:51
DX: I48.20 Chronic atrial fibrillation, unspecified (principal); R42 Dizziness and giddiness; E11.9 Type 2 diabetes mellitus without complications; E78.00 Pure hypercholesterolemia, unspecified; I10 Essential (primary) hypertension; Z79.01 Long term (current) use of anticoagulants; Z79.85 Long-term (current) use of injectable non-insulin antidiabetic drugs; Z79.4 Long term (current) use of insulin; Z79.899 Other long term (current) drug therapy
CPT/HCPCS: 36415; 71045; 80048; 81001; 84484; 85025; 93005; 99285